=== PATIENT | female | born 1990 | race Caucasian/White ===

== ENCOUNTER 2017-05-17 06:53 | Inpatient (IN) | payer MEDICAID ==
[2017-05-17] MEDS ORDERED: Sodium Chloride 0.9% 10 ML Syringe FLUSH PRN (08:07)
[2017-05-17] MEDS ORDERED: Ondansetron 4 MG Tab.DIS PO PRN (08:07)
[2017-05-17] MEDS ORDERED: fentaNYL 100 MCG/2 ML SDV IVPUSH PRN (08:07)
[2017-05-17] MEDS ORDERED: Misoprostol 50 MCG (1/2 of 100 MCG) Tab VAG ONE ×2 (08:15→12:09)
--- NOTE | 2017-05-17 08:20 | PCM.LDHP ---
L&D History of Present Illness - General Date of Service: 05/17/17 (induction) Admit Problem/Dx: Patient Status Order with Admit Dx/Problem 05/17/17 08:07 Patient Status [ADT] Routine Admission Diagnosis/Problem Admission Diagnosis/Problem and not yet delivered Source of Information: Patient History Limitations: Reports: No Limitations - History of Present Illness Introduction:: This 26 year old who is 41 1/7 weeks gestation presents for induction of labor. Has a complicated UTI as well. This is a chronic problem for her and every time she is seen she has UTI. culture pending, Has flank pain. Also has irregular contractions and didn't sleep well last night. Labs: gbs neg, HIV neg, rubella immune, UA WBC 30-40 RBC 5-10, CBC pending. CMP ordered. Has had limited care with just a few visits, states she was unable to come in for visit due to transportation Timing/Duration: Reports: minutes: (2-5) Location, : Reports: Abdomen, Lower back Quality: Reports: Pressure Severity: Moderate Improves with: Reports: None Worsens with: Reports: None - Related Data Allergies/Adverse Reactions: Allergies Allergy/AdvReac Type Severity Reaction Status Date / Time No Known Allergies Allergy Verified 06/29/15 12:25 Home Medications: Home Meds NK [No Known Home Meds] 06/29/15 [History] Past Medical History - Past Health History Medical/Surgical History: Denies Medical/Surgical History Genitourinary History: Reports: Other (See Below) Other Genitourinary History: stent placed a couple years ago 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: : 5 Para: 1 LMP (Approximate): (DION 05/09/17) Neurological History: Reports: Migraines Other Neuro History: hx of migraines Psychiatric History: Reports: Other (See Below) Other Psychiatric History: hx of depression but not so much anymore - Infectious Disease History Infectious Disease History: Reports: Chicken Pox - Past Surgical History Female Surgical History: Reports: None Neurological Surgical History: Reports: None Social & Family History - Family History Family Medical History: Noncontributory - Tobacco Use Smoking Status *Q: Current Every Day Smoker Years of Tobacco use: 10 Packs/Tins Daily: 0.2 Used Tobacco, but Quit: No Second Hand Smoke Exposure: Yes - Caffeine Use Caffeine Use: Reports: None Other Caffeine Use: limiting - Alcohol Use Days Per Week of Alcohol Use: 0 - Recreational Drug Use Recreational Drug Use: No Drug Use in Last 12 Months: No Recreational Drug Type: Reports: Marijuana/Hashish, Methamphetamine Recreational Drug Use Frequency: Monthly Recreational Drug Last Use: 7 mths H&P Review of Systems - Review of Systems: Review Of Systems: See Below General: Reports: No Symptoms HEENT: Reports: No Symptoms Pulmonary: Reports: No Symptoms Cardiovascular: Reports: No Symptoms Gastrointestinal: Reports: No Symptoms Genitourinary: Reports: Hematuria, Flank Pain Musculoskeletal: Reports: No Symptoms Skin: Reports: No Symptoms Psychiatric: Reports: No Symptoms Neurological: Reports: No Symptoms Hematologic/Lymphatic: Reports: No Symptoms Immunologic: Reports: No Symptoms L&D Exam - Exam Exam: See Below - Vital Signs Vital Signs: Last Vital Signs Temp 98.3 F 05/17/17 07:46 Pulse 94 05/17/17 07:46 Resp 18 05/17/17 07:46 BP 131/85 05/17/17 07:46 Pulse Ox 97 05/17/17 07:46 Weight: 170 lb - OB Specific Contraction Frequency (min): 2-5.5 Contraction Intensity: Mild Movement: Active Heart Tones: Present Heart Rate (FHR) Variability: Moderate (6-25 bmp) Presentation: Vertex Estimated Weight: 6-7 pounds - Bowman Score Bowman Score Cervix Position: Midposition Bowman Score Consistency: Soft Bowman Score Effacement: 51-70% Bowman Score Dilation: 1-2 cm Bowman Score Infant's Station: -1 ,0 Bowman Score Total: 8 - Exam General: Alert, Oriented HEENT: PERRLA, Conjunctiva Clear, Hearing Intact, Mucosa Moist & [place], Posterior Pharynx Clear Neck: Supple Lungs: Clear to Auscultation, Normal Respiratory Effort Cardiovascular: Regular Rate, Regular Rhythm GI/Abdominal Exam: Normal Bowel Sounds, Pelvis Stable Rectal Exam: Normal Exam Genitourinary: Cervical dilitation, Enlarged uterus Back Exam: Normal Inspection, CVA Tenderness (R) Extremities: Normal Inspection, Normal Capillary Refill Skin: Warm, Dry, Intact Psychiatric: Alert, Normal Affect, Normal Mood - Patient Data Lab Results Last 24 hrs: Laboratory Results - last 24 hr 05/17/17 05/17/17 05/17/17 Range/Units 07:07 07:07 07:14 Sodium 137 L (140-148) mmol/L Potassium 3.8 (3.6-5.2) mmol/L Chloride 104 (100-108) mmol/L Carbon Dioxide 20 L (21-32) mmol/L Anion Gap 16.8 H (5.0-14.0) mmol/L BUN 8 (7-18) mg/dL Creatinine 0.9 (0.6-1.0) mg/dL Est Cr Clr Drug Dosing 88.68 mL/min Estimated GFR (MDRD) > 60 (>60) Glucose 79 (74-106) mg/dL Calcium 9.0 (8.5-10.1) mg/dL Total Bilirubin 0.3 (0.2-1.0) mg/dL AST 16 (15-37) U/L ALT 12 (12-78) U/L Alkaline Phosphatase 272 H (46-116) U/L Total Protein 7.1 (6.4-8.2) g/dL Albumin 2.4 L (3.4-5.0) g/dL Globulin 4.7 H (2.3-3.5) g/dL Albumin/Globulin Ratio 0.5 L (1.2-2.2) Urine Color Yellow Urine Appearance Turbid Urine pH 6.0 (4.5-8.0) Ur Specific [place] 1.015 (1.008-1.030) Urine Protein Trace (NEGATIVE) mg/dL Urine Glucose (UA) Normal (NEGATIVE) mg/dL Urine Ketones Negative (NEGATIVE) mg/dL Urine Occult Blood Moderate (NEGATIVE) Urine Nitrite Negative (NEGATIVE) Urine Bilirubin Negative (NEGATIVE) Urine Urobilinogen Normal (NORMAL) mg/dL Ur Leukocyte Esterase Large (NEGATIVE) Urine RBC 5-10 H (0-5) Urine WBC 75-100 H (0-5) Ur Epithelial Cells Rare Amorphous Sediment Rare Urine Bacteria Moderate Urine Mucus Not seen Urine Opiates Screen Negative (NEGATIVE) Ur Oxycodone Screen Negative (NEGATIVE) Urine Methadone Screen Negative (NEGATIVE) Ur Propoxyphene Screen Negative (NEGATIVE) Ur Barbiturates Screen Negative (NEGATIVE) Ur Tricyclics Screen Negative (NEGATIVE) Ur Phencyclidine Scrn Negative (NEGATIVE) Ur Amphetamine Screen Negative (NEGATIVE) U Methamphetamines Scrn Negative (NEGATIVE) Urine MDMA Screen Negative (NEGATIVE) U Benzodiazepines Scrn Negative (NEGATIVE) U Cocaine Metab Screen Negative (NEGATIVE) U Marijuana (THC) Screen Negative (NEGATIVE) Result Diagrams: 05/17/17 07:14 - Problem List (1) Elective induction of labor planned SNOMED Code(s): 153567813 ICD Code: [id number] - Status: Acute Current Visit: No (2) SNOMED Code(s): 69930694 ICD Code: Z34.90 - ENCNTR FOR SUPRVSN OF NORMAL , UNSP, UNSP TRIMESTER Status: Acute Current Visit: No Qualifiers: Weeks of gestation: 41 weeks Qualified Code(s): Z3A.41 - 41 weeks gestation of (3) Non-obstructive reflux-associated chronic pyelonephritis SNOMED Code(s): 395522849 ICD Code: N11.0 - NONOBSTRUCTIVE REFLUX-ASSOCIATED CHRONIC PYELONEPHRITIS Status: Chronic Priority: Medium Current Visit: No Problem List Initiated/Reviewed/Updated: Yes Orders Last 24hrs: Active Orders 24 hr Category Date Time Status Patient Status [ADT] Routine ADT 05/17/17 08:07 Ordered Antiembolic Devices [RC] .Routine Care 05/17/17 08:12 Ordered Communication Order [RC] ASDIRECTED Care 05/17/17 08:07 Ordered Heart Tones [RC] PER UNIT ROUTINE Care 05/17/17 08:07 Ordered Notify Provider Vital Signs [RC] PRN Care 05/17/17 08:07 Ordered Notify Provider [RC] PRN Care 05/17/17 08:07 Ordered Up ad Emily [RC] ASDIRECTED Care 05/17/17 08:07 Ordered VTE/DVT Education [RC] Click to Edit Care 05/17/17 08:12 Ordered Vital Signs [RC] PER UNIT ROUTINE Care 05/17/17 08:07 Ordered Regular Diet [DIET] Diet 05/17/17 Lunch Ordered CBC WITH AUTO DIFF [HEME] Routine Lab 05/17/17 07:56 Ordered CULTURE URINE [RM] Routine Lab 05/17/17 07:50 Ordered Misoprostol [Cytotec] Med 05/17/17 08:15 Once 50 mcg VAG ONETIME ONE Normal Saline @ 125 MLS/HR (1000ml) Med 05/17/17 08:15 Ordered Sodium Chloride 0.9% [Normal Saline] 1,000 ml IV ASDIRECTED Ondansetron [Zofran ODT] Med 05/17/17 08:07 Ordered 4 mg PO Q4H PRN Oxytocin/Normal Saline [Pitocin in NS 20 Units/1,000 ML Med 05/17/17 08:15 Ordered ] 1,000 ml IV TITRATE Sodium Chloride 0.9% [Saline Flush] Med 05/17/17 08:07 Ordered 10 ml FLUSH ASDIRECTED PRN cefTRIAXone [Rocephin] 1 gm Med 05/17/17 08:15 Ordered Sodium Chloride 0.9% [Normal Saline] 50 ml IV Q24H fentaNYL [Sublimaze] Med 05/17/17 08:07 Ordered 100 mcg IVPUSH Q1H PRN DVT/VTE Prophylaxis Reflex [OM.PC] Routine Oth 05/17/17 08:07 Ordered Saline Lock Insert [OM.PC] Routine Oth 05/17/17 08:07 Ordered Resuscitation Status Routine Resus Stat 05/17/17 08:07 Ordered Medication Orders Fentanyl (Sublimaze) 100 mcg IVPUSH Q1H PRN PRN Reason: Pain (moderate 4-6) Sodium Chloride (Normal Saline) 1,000 mls @ 125 mls/hr IV ASDIRECTED HUGO Ceftriaxone Sodium 1 gm/ (Sodium Chloride) 50 mls @ 100 mls/hr IV Q24H HUGO Misoprostol (Cytotec) 50 mcg VAG ONETIME ONE Stop: 05/17/17 08:16 Last Admin: 05/17/17 08:03 Dose: 50 mcg Ondansetron HCl (Zofran Odt) 4 mg PO Q4H PRN PRN Reason: Nausea/Vomiting Sodium Chloride (Saline Flush) 10 ml FLUSH ASDIRECTED PRN PRN Reason: Keep Vein Open Assessment/Plan Comment:: 26 yr old 41 1/7 weeks with complicated UTI and planned induction for dates. UA positive for rcb's and wbc's culture pending HGB 11.9, PLT 332 ABO o pos HIV neg Rubella immune GBS neg Plan treat complicated uti with IV Rocephin for the next several await culture Misoprostol vaginally this morning and may repeat at noon. monitor for active labor Plan for vaginal delivery later today.
[2017-05-17] MEDS: Sodium Chloride 0.9% 1,000 ML IV SCH ×2 (09:57→21:18)
[2017-05-17] MEDS: cefTRIAXone 1 GM in Sodium Chloride 0.9% 50 ML IV SCH (09:58)
[2017-05-17] MEDS ORDERED: Sodium Chloride 0.9% 1,000 ML IV ONE ×2 (12:14→13:15)
--- NOTE | 2017-05-17 12:18 | PCM.PNLD ---
Labor Progress Note - VS & Meds Vital Signs: Last Vital Signs Temp 98.5 F 05/17/17 11:37 Pulse 72 05/17/17 11:37 Resp 18 05/17/17 11:37 BP 113/62 05/17/17 11:37 Pulse Ox 96 05/17/17 11:37 Active Medications: Current Medications Fentanyl (Sublimaze) 100 mcg IVPUSH Q1H PRN PRN Reason: Pain (moderate 4-6) Sodium Chloride (Normal Saline) 1,000 mls @ 125 mls/hr IV ASDIRECTED HUGO Last Admin: 05/17/17 09:57 Dose: 125 mls/hr Ceftriaxone Sodium 1 gm/ (Sodium Chloride) 50 mls @ 100 mls/hr IV Q24H HUGO Last Admin: 05/17/17 09:58 Dose: 100 mls/hr Oxytocin/Sodium Chloride (Pitocin In Ns 20 Units/1,000 Ml) 20 units in 1,000 mls @ 6 mls/hr IV TITRATE HUGO; 2 MUNITS/MIN PRN Reason: Protocol Misoprostol (Cytotec) 50 mcg VAG ONETIME ONE Stop: 05/17/17 12:10 Ondansetron HCl (Zofran Odt) 4 mg PO Q4H PRN PRN Reason: Nausea/Vomiting Last Admin: 05/17/17 09:57 Dose: 4 mg Sodium Chloride (Saline Flush) 10 ml FLUSH ASDIRECTED PRN PRN Reason: Keep Vein Open Discontinued Medications Misoprostol (Cytotec) 50 mcg VAG ONETIME ONE Stop: 05/17/17 08:16 Last Admin: 05/17/17 08:03 Dose: 50 mcg - Uterine Contractions Uterine Monitoring Mode: External [place] Contraction Frequency (min): 2-5 Contraction Duration (sec): 50-80 Contraction Intensity: Moderate Uterine Resting Tone: Soft - Monitoring Monitor Mode: External Ultrasound Heart Rate (FHR) Variability: Moderate (6-25 bmp) Accelerations: Present, 15x15 Decelerations: None Strip Review: Category I - Vaginal Exam Dilation (cm): 2-3 Station: Ballot[place] Cervical Position: Midposition Sterile Vaginal Exam Performed By: Peg Spence Vaginal Exam Comment: some thinner than this morning. Contractions stronger - Labor Progress (Free Text) Labor Progress: 2-3/75/-1 Contractions stronger nauseated Plan up and about after one hour of monitoring after Misoprostol insertion another 50 mcg placed at 1215. Planning for vaginal delivery later Epidural after dilated to 4 cm
[2017-05-17] MEDS ORDERED: ePHEDrine 50 MG/ML SDV ONE (13:36)
[2017-05-17] MEDS ORDERED: fentaNYL 100 MCG/2 ML SDV ONE (14:58)
[2017-05-17] MEDS ORDERED: Ropivacaine 0.2% 2 MG/ML 100 ML Infusion Bottle ONE (16:00)
--- NOTE | 2017-05-17 17:06 | PCM.PNLD ---
Labor Progress Note - VS & Meds Vital Signs: Last Vital Signs Temp 98.5 F 05/17/17 11:37 Pulse 61 05/17/17 16:40 Resp 16 05/17/17 16:40 BP 120/76 05/17/17 16:40 Pulse Ox 94 L 05/17/17 16:40 Active Medications: Current Medications Fentanyl (Sublimaze) 100 mcg IVPUSH Q1H PRN PRN Reason: Pain (moderate 4-6) Sodium Chloride (Normal Saline) 1,000 mls @ 125 mls/hr IV ASDIRECTED HUGO Last Admin: 05/17/17 09:57 Dose: 125 mls/hr Ceftriaxone Sodium 1 gm/ (Sodium Chloride) 50 mls @ 100 mls/hr IV Q24H HUGO Last Admin: 05/17/17 09:58 Dose: 100 mls/hr Oxytocin/Sodium Chloride (Pitocin In Ns 20 Units/1,000 Ml) 20 units in 1,000 mls @ 6 mls/hr IV TITRATE HUGO; 2 MUNITS/MIN PRN Reason: Protocol Sodium Chloride (Normal Saline) 1,000 mls @ 125 mls/hr IV BOLUS ONE Stop: 05/17/17 21:14 Last Admin: 05/17/17 13:39 Dose: 125 mls/hr Ondansetron HCl (Zofran Odt) 4 mg PO Q4H PRN PRN Reason: Nausea/Vomiting Last Admin: 05/17/17 09:57 Dose: 4 mg Sodium Chloride (Saline Flush) 10 ml FLUSH ASDIRECTED PRN PRN Reason: Keep Vein Open Discontinued Medications Ephedrine Sulfate (Ephedrine Sulfate) Confirm Administered Dose 50 mg .ROUTE .STK-MED ONE Stop: 05/17/17 13:37 Last Admin: 05/17/17 16:47 Dose: Not Given Fentanyl (Sublimaze) Confirm Administered Dose 100 mcg .ROUTE .STK-MED ONE Stop: 05/17/17 14:59 Sodium Chloride (Normal Saline) 1,000 mls @ 999 mls/hr IV .BOLUS ONE Stop: 05/17/17 13:14 Last Admin: 05/17/17 12:31 Dose: 999 mls/hr Misoprostol (Cytotec) 50 mcg VAG ONETIME ONE Stop: 05/17/17 08:16 Last Admin: 05/17/17 08:03 Dose: 50 mcg Misoprostol (Cytotec) 50 mcg VAG ONETIME ONE Stop: 05/17/17 12:10 Last Admin: 05/17/17 12:33 Dose: 50 mcg - Uterine Contractions Uterine Monitoring Mode: External [place] Contraction Frequency (min): 1-2.5 Contraction Duration (sec): 50-100 Contraction Intensity: Strong Uterine Resting Tone: Soft - Monitoring Monitor Mode: External Ultrasound Heart Rate (FHR) Variability: Moderate (6-25 bmp) Accelerations: Present, 15x15 Decelerations: None Strip Review: Category I - Vaginal Exam Dilation (cm): 7.5-8 Effacement (Percent): 95 Station: 1 Cervical Position: Anterior Sterile Vaginal Exam Performed By: Simran Sanford Vaginal Exam Comment: nice change since AROM at 1555. - Labor Progress (Free Text) Labor Progress: Epidural at 1514, good control of legs, pain controlled as well. Anticipate a vaginal delivery
[2017-05-17] MEDS ORDERED: diphenhydrAMINE 50 MG/ML SDV IVPUSH ONE (18:08)
[2017-05-17] MEDS ORDERED: diphenhydrAMINE 50 MG/ML SDV ONE (18:08)
[2017-05-17] MEDS ORDERED: methylPREDNISolone Sod Succ 250 MG in Dextrose 5% in Water 100 ML IV ONE ×2 (18:08)
[2017-05-17] MEDS ORDERED: methylPREDNISolone Sodium Succinate 125 MG/2 ML SDV ONE (18:09)
[2017-05-17] MEDS ORDERED: Acetaminophen 325 MG Tab PO PRN (18:24)
[2017-05-17] MEDS ORDERED: Docusate Sodium 100 MG Cap PO PRN (18:24)
--- NOTE | 2017-05-17 18:58 | PCM.DEL ---
L & D Note - General Info Date of Service: 05/17/17 (delivery) Mother's Due Date: 05/09/17 - Delivery Note Labor: Spontaneous Cervical Ripening Method: Misoprostil Delivery Outcome: Livebirth Infant Delivery Method: Spontaneous Vaginal Delivery-Single Delivery Mode: Vacuum Extraction Presentation: Vertex Nuchal Cord: Present Anesthesia Type: Epidural Amniotic Fluid Description: Clear Episiotomy Type: None Laceration: 1st Degree, Perineal Suture type: Vicryl Suture size: 3-0 Placenta: Intact, Spontaneous Cord: 3 Vessels Estimated Blood Loss: 400 Resuscitation Needed: No [place]: Bulb Syringe, Stimulated, Warmed Provider: Peg Spence Score 1 min: 8 Score 5 min: 9 Score 10 min: 9 Post Delivery Events: Other (see below) (anaphylactic reaction requiring medication and respiratory support with O2) Second Stage Interventions: Reports: Second Nurse Reviewed Heart Tones, Pushing, Squat Bar Pulling on Sheet Delivery Comments (Free Text/Narrative):: This 26 year old who is 41 1/7 weeks gestation delivered via a viable female at 1758 in LENNY position. Mother was pushing effectively but baby heart tones were in the 90 for 5 minutes. the Kiwi was used to help with delivery of the head. the head was brought to the perinuem and mother pushed the out with one long push. There was a tight nuchal cord which I tried to reduce but it would not reduce, the cord was clamped and cut. The baby was when delivered and cried as we placed her on mother's abdomen. Bulb suctioned, dried and stimulated. Apgars of 8,9,9. Three vessel cord. The placenta was expressed spontaneously intact. There was a first degree perineal tear which was repaired with 3-0 vicryl. As I was finishing the repair work we noticed hives on her right forearm. She quickly went into an anaphylactic reaction with angioedema of her face and rattely respirations. Solu medrol 250 mg IV given and 50 mg Benadryl IV and a non-rebreather for O2. PET GROOMER was asked to present tot he unit for possible respiratory support and the staff assist was called. She responded to the medications and O2 within minutes and breathing became easier. Mother now stable EBL 400cc Baby to nursery in stable condition First stage 0784-0017 Second stage [id number] Third stage 5984-6193 Induction Criteria - Bowman Score Bowman Score Dilation: 1-2 cm Bowman Score Effacement: 40-50% Bowman Score 's Station: -1 ,0 Bowman Score Consistency: Soft Bwoman Score Cervix Position: Midposition Bowman Score Total: 7 Bowman Score Presenting Part: Reports: Cephalic - Induction Gestational Age >/= 39 wks: Yes Estimated Pelvis: Reports: Adequate Reassuring Monitoring Strip: Yes Absence of Tachy Systole: Yes Vacuum Extractor Progress Note - Alternative Labor Strategies Considered Alternative Labor Strategies Considered:: Reports: Yes Strategies Considered:: Reports: Contraction Intensity Adequate, Position Changes Used to Facilitate Rotation & Descent, Empty Bladder Indications Considered:: Reports: Yes Indications:: Reports: Suspicion of Immediate or Potential Compromise Time Out:: Reports: Yes - Patient Prepared Patient Prepared:: Reports: Yes Informed Consent:: Reports: Verbal Risks: Reports: Yes Risks Include:: Reports: Laceration, Shoulder Dystocia, Maternal Injury, Other Anesthesia/Analgesia Adequate:: Reports: Yes - Probability of Success High Probability of Success:: Reports: Yes Weight Estimated:: Reports: AGA Patient Diabetic:: Reports: No Pelvis Adequate:: Reports: Yes Asynclitic:: Reports: No - Application Time Maximum Application Time & Number of Pop-Offs Predetermined:: Reports: Yes Type of Vacuum Used:: Reports: Cup: Mushroom type Vacuum Extraction: Successful - Exit Strategy Exit strategy available:: Reports: Yes and resuscitation teams readily available:: Reports: Yes - General Info Date of Service: 05/17/17 Admission Dx/Problem (Free Text): Patient Status Order with Admit Dx/Problem 05/17/17 08:07 Patient Status [ADT] Routine Admission Diagnosis/Problem Admission Diagnosis/Problem and not yet delivered Functional Status: Reports: Pain Controlled - Review of Systems General: Reports: No Symptoms HEENT: Reports: No Symptoms Pulmonary: Reports: No Symptoms Cardiovascular: Reports: No Symptoms Gastrointestinal: Reports: No Symptoms Genitourinary: Reports: No Symptoms Musculoskeletal: Reports: No Symptoms Skin: Reports: No Symptoms Neurological: Reports: No Symptoms Psychiatric: Reports: No Symptoms - Patient Data Vitals - Most Recent: Last Vital Signs Temp 98.5 F 05/17/17 11:37 Pulse 61 10/30/17 16:40 Resp 16 05/17/17 16:40 BP 120/76 05/17/17 16:40 Pulse Ox 94 L 05/17/17 16:40 Weight - Most Recent: 170 lb I&O - Last 24 Hours: Intake & Output 05/17/17 05/17/17 05/17/17 06:59 14:59 22:59 Intake Total 50 Balance 50 Lab Results Last 24 Hours: Laboratory Results - last 24 hr 05/17/17 05/17/17 05/17/17 Range/Units 07:07 07:07 07:14 WBC (4.5-11.0) K/uL RBC (3.30-5.50) M/uL Hgb (12.0-15.0) g/dL Hct (36.0-48.0) % MCV (80-98) fL MCH (27-31) pg MCHC (32-36) % Plt Count (150-400) K/uL Neut % (Auto) (36-66) % Lymph % (Auto) (24-44) % [place] % (Auto) (2-6) % Eos % (Auto) (2-4) % Baso % (Auto) (0-1) % Sodium 137 L (140-148) mmol/L Potassium 3.8 (3.6-5.2) mmol/L Chloride 104 (100-108) mmol/L Carbon Dioxide 20 L (21-32) mmol/L Anion Gap 16.8 H (5.0-14.0) mmol/L BUN 8 (7-18) mg/dL Creatinine 0.9 (0.6-1.0) mg/dL Est Cr Clr Drug Dosing 88.68 mL/min Estimated GFR (MDRD) > 60 (>60) Glucose 79 (74-106) mg/dL Calcium 9.0 (8.5-10.1) mg/dL Total Bilirubin 0.3 (0.2-1.0) mg/dL AST 16 (15-37) U/L ALT 12 (12-78) U/L Alkaline Phosphatase 272 H (46-116) U/L Total Protein 7.1 (6.4-8.2) g/dL Albumin 2.4 L (3.4-5.0) g/dL Globulin 4.7 H (2.3-3.5) g/dL Albumin/Globulin Ratio 0.5 L (1.2-2.2) Urine Color Yellow Urine Appearance Turbid Urine pH 6.0 (4.5-8.0) Ur Specific [place] 1.015 (1.008-1.030) Urine Protein Trace (NEGATIVE) mg/dL Urine Glucose (UA) Normal (NEGATIVE) mg/dL Urine Ketones Negative (NEGATIVE) mg/dL Urine Occult Blood Moderate (NEGATIVE) Urine Nitrite Negative (NEGATIVE) Urine Bilirubin Negative (NEGATIVE) Urine Urobilinogen Normal (NORMAL) mg/dL Ur Leukocyte Esterase Large (NEGATIVE) Urine RBC 5-10 H (0-5) Urine WBC 75-100 H (0-5) Ur Epithelial Cells Rare Amorphous Sediment Rare Urine Bacteria Moderate Urine Mucus Not seen Urine Opiates Screen Negative (NEGATIVE) Ur Oxycodone Screen Negative (NEGATIVE) Urine Methadone Screen Negative (NEGATIVE) Ur Propoxyphene Screen Negative (NEGATIVE) Ur Barbiturates Screen Negative (NEGATIVE) Ur Tricyclics Screen Negative (NEGATIVE) Ur Phencyclidine Scrn Negative (NEGATIVE) Ur Amphetamine Screen Negative (NEGATIVE) U Methamphetamines Scrn Negative (NEGATIVE) Urine MDMA Screen Negative (NEGATIVE) U Benzodiazepines Scrn Negative (NEGATIVE) U Cocaine Metab Screen Negative (NEGATIVE) U Marijuana (THC) Screen Negative (NEGATIVE) 05/17/17 Range/Units 07:56 WBC 12.2 H (4.5-11.0) K/uL RBC 3.90 (3.30-5.50) M/uL Hgb 11.9 L (12.0-15.0) g/dL Hct 35.4 L (36.0-48.0) % MCV 91 (80-98) fL MCH 31 (27-31) pg MCHC 34 (32-36) % Plt Count 332 (150-400) K/uL Neut % (Auto) 60 (36-66) % Lymph % (Auto) 30 (24-44) % [place] % (Auto) 8 H (2-6) % Eos % (Auto) 2 (2-4) % Baso % (Auto) 0 (0-1) % Sodium (140-148) mmol/L Potassium (3.6-5.2) mmol/L Chloride (100-108) mmol/L Carbon Dioxide (21-32) mmol/L Anion Gap (5.0-14.0) mmol/L BUN (7-18) mg/dL Creatinine (0.6-1.0) mg/dL Est Cr Clr Drug Dosing mL/min Estimated GFR (MDRD) (>60) Glucose (74-106) mg/dL Calcium (8.5-10.1) mg/dL Total Bilirubin (0.2-1.0) mg/dL AST (15-37) U/L ALT (12-78) U/L Alkaline Phosphatase (46-116) U/L Total Protein (6.4-8.2) g/dL Albumin (3.4-5.0) g/dL Globulin (2.3-3.5) g/dL Albumin/Globulin Ratio (1.2-2.2) Urine Color Urine Appearance Urine pH (4.5-8.0) Ur Specific [place] (1.008-1.030) Urine Protein (NEGATIVE) mg/dL Urine Glucose (UA) (NEGATIVE) mg/dL Urine Ketones (NEGATIVE) mg/dL Urine Occult Blood (NEGATIVE) Urine Nitrite (NEGATIVE) Urine Bilirubin (NEGATIVE) Urine Urobilinogen (NORMAL) mg/dL Ur Leukocyte Esterase (NEGATIVE) Urine RBC (0-5) Urine WBC (0-5) Ur Epithelial Cells Amorphous Sediment Urine Bacteria Urine Mucus Urine Opiates Screen (NEGATIVE) Ur Oxycodone Screen (NEGATIVE) Urine Methadone Screen (NEGATIVE) Ur Propoxyphene Screen (NEGATIVE) Ur Barbiturates Screen (NEGATIVE) Ur Tricyclics Screen (NEGATIVE) Ur Phencyclidine Scrn (NEGATIVE) Ur Amphetamine Screen (NEGATIVE) U Methamphetamines Scrn (NEGATIVE) Urine MDMA Screen (NEGATIVE) U Benzodiazepines Scrn (NEGATIVE) U Cocaine Metab Screen (NEGATIVE) U Marijuana (THC) Screen (NEGATIVE) Med Orders - Current: Current Medications Acetaminophen (Tylenol) 650 mg PO Q4H PRN PRN Reason: mild pain or fever Acetaminophen/Codeine Phosphate (Tylenol With Codeine No.3 300mg/30mg) 1 tab PO Q4H PRN PRN Reason: Pain (moderate 4-6) Cetirizine HCl (Zyrtec) 10 mg PO DAILY HUGO Docusate Sodium (Colace) 100 mg PO BID PRN PRN Reason: Constipation Fentanyl (Sublimaze) 100 mcg IVPUSH Q1H PRN PRN Reason: Pain (moderate 4-6) Sodium Chloride (Normal Saline) 1,000 mls @ 125 mls/hr IV ASDIRECTED HUGO Last Admin: 05/17/17 09:57 Dose: 125 mls/hr Ceftriaxone Sodium 1 gm/ (Sodium Chloride) 50 mls @ 100 mls/hr IV Q24H HUGO Last Admin: 05/17/17 09:58 Dose: 100 mls/hr Oxytocin/Sodium Chloride (Pitocin In Ns 20 Units/1,000 Ml) 20 units in 1,000 mls @ 6 mls/hr IV TITRATE HUGO; 2 MUNITS/MIN PRN Reason: Protocol Sodium Chloride (Normal Saline) 1,000 mls @ 125 mls/hr IV BOLUS ONE Stop: 05/17/17 21:14 Last Admin: 05/17/17 13:39 Dose: 125 mls/hr Ibuprofen (Motrin) 600 mg PO Q6H PRN PRN Reason: mild pain or fever Ondansetron HCl (Zofran Odt) 4 mg PO Q4H PRN PRN Reason: Nausea/Vomiting Last Admin: 05/17/17 09:57 Dose: 4 mg Prednisone (Prednisone) 40 mg PO .Daily Taper HUGO Ranitidine HCl (Zantac) 300 mg PO BID HUGO Sodium Chloride (Saline Flush) 10 ml FLUSH ASDIRECTED PRN PRN Reason: Keep Vein Open Discontinued Medications Diphenhydramine HCl (Benadryl) Confirm Administered Dose 50 mg .ROUTE .STK-MED ONE Stop: 05/17/17 18:09 Ephedrine Sulfate (Ephedrine Sulfate) Confirm Administered Dose 50 mg .ROUTE .STK-MED ONE Stop: 05/17/17 13:37 Last Admin: 05/17/17 16:47 Dose: Not Given Fentanyl (Sublimaze) Confirm Administered Dose 100 mcg .ROUTE .STK-MED ONE Stop: 05/17/17 14:59 Sodium Chloride (Normal Saline) 1,000 mls @ 999 mls/hr IV .BOLUS ONE Stop: 05/17/17 13:14 Last Admin: 05/17/17 12:31 Dose: 999 mls/hr Methylprednisolone Sodium Succinate (Solu-Medrol) Confirm Administered Dose 250 mg .ROUTE .STK-MED ONE Stop: 05/17/17 18:10 Misoprostol (Cytotec) 50 mcg VAG ONETIME ONE Stop: 05/17/17 08:16 Last Admin: 05/17/17 08:03 Dose: 50 mcg Misoprostol (Cytotec) 50 mcg VAG ONETIME ONE Stop: 05/17/17 12:10 Last Admin: 05/17/17 12:33 Dose: 50 mcg - Exam General: Alert, Oriented HEENT: Pupils Equal, Pupils Reactive, EOMI, Mucous Membr. Moist/[place] Neck: Supple Lungs: Clear to Auscultation, Normal Respiratory Effort Cardiovascular: Regular Rate, Regular Rhythm GI/Abdominal Exam: Normal Bowel Sounds, Soft, Non-Tender, No Organomegaly, No Distention, No Abnormal Bruit, No Mass, Pelvis Stable (Female) Exam: Normal External Exam, Normal Speculum Exam, Normal Bimanual Exam, Enlarged Uterus, Vaginal Bleeding Back Exam: Normal Inspection, Full Range of Motion Extremities: Normal Inspection, Normal Range of Motion, Non-Tender, No Pedal Edema, Normal Capillary Refill Skin: Warm, Dry, Intact Wound/Incisions: Healing Well Neurological: No New Focal Deficit Psy/Mental Status: Alert, Normal Affect, Normal Mood - Problem List & Annotations (1) Elective induction of labor planned SNOMED Code(s): 828911661 Code(s): NFC2631 - Status: Acute Current Visit: No (2) SNOMED Code(s): 80897654 Code(s): Z34.90 - ENCNTR FOR SUPRVSN OF NORMAL , UNSP, UNSP TRIMESTER Status: Acute Current Visit: No Qualifiers: Weeks of gestation: 41 weeks Qualified Code(s): Z3A.41 - 41 weeks gestation of (3) Non-obstructive reflux-associated chronic pyelonephritis SNOMED Code(s): 625046096 Code(s): N11.0 - NONOBSTRUCTIVE REFLUX-ASSOCIATED CHRONIC PYELONEPHRITIS Status: Chronic Priority: Medium Current Visit: No (4) Vaginal delivery SNOMED Code(s): 006329223 Code(s): O80 - ENCOUNTER FOR FULL-TERM UNCOMPLICATED DELIVERY Status: Acute Current Visit: Yes (5) Anaphylactic reaction SNOMED Code(s): 88024773 Code(s): T78.2XXA - ANAPHYLACTIC SHOCK, UNSPECIFIED, INITIAL ENCOUNTER Status: Acute Current Visit: No - Problem List Review Problem List Initiated/Reviewed/Updated: Yes - My Orders Last 24 Hours: My Active Orders 05/17/17 07:00 CULTURE URINE [RM] Routine 05/17/17 08:07 Communication Order [RC] ASDIRECTED Notify Provider Vital Signs [RC] PRN Notify Provider [RC] PRN Up ad Emily [RC] ASDIRECTED Vital Signs [RC] Q4H Ondansetron [Zofran ODT] 4 mg PO Q4H PRN Sodium Chloride 0.9% [Saline Flush] 10 ml FLUSH ASDIRECTED PRN fentaNYL [Sublimaze] 100 mcg IVPUSH Q1H PRN DVT/VTE Prophylaxis Reflex [OM.PC] Routine Saline Lock Insert [OM.PC] Routine Resuscitation Status Routine 05/17/17 08:12 Antiembolic Devices [RC] .Routine VTE/DVT Education [RC] Click to Edit 05/17/17 08:15 Oxytocin/Normal Saline [Pitocin in NS 20 Units/1,000 ML] 20 units in 1,000 ml IV TITRATE Sodium Chloride 0.9% [Normal Saline] 1,000 ml IV ASDIRECTED 05/17/17 09:30 cefTRIAXone [Rocephin] 1 gm Sodium Chloride 0.9% [Normal Saline] 50 ml IV Q24H 05/17/17 13:15 Sodium Chloride 0.9% [Normal Saline] 1,000 ml IV BOLUS 05/17/17 16:14 Urinary Catheter Assessment [RC] ASDIRECTED 05/17/17 16:15 Insert [place] Catheter [Insert Urinary Catheter] [OM.PC] Q24H 05/17/17 18:24 Acetaminophen [Tylenol] 650 mg PO Q4H PRN Acetaminophen/Codeine [Tylenol with Codeine No.3 300MG/30MG] 1 tab PO Q4H PRN Docusate Sodium [Colace] 100 mg PO BID PRN Ibuprofen [Motrin] 600 mg PO Q6H PRN Assess Lochia [WOMSER] Per Unit Routine Assess Uterine Involution [WOMSER] Per Unit Routine 05/17/17 18:27 Patient Status [ADT] Routine Vital Signs [RC] PFP 05/17/17 18:28 Ice Therapy [OM.PC] Per Unit Routine Perineal Care [OM.PC] Per Unit Routine Sitz Bath [OM.PC] Per Unit Routine 05/17/17 18:45 predniSONE 40 mg PO .Daily Taper 05/17/17 21:00 Ranitidine [Zantac] 300 mg PO BID 05/17/17 Lunch Regular Diet [DIET] 05/18/17 05:11 CBC WITH AUTO DIFF [HEME] AM 05/18/17 09:00 Cetirizine [ZyrTEC] 10 mg PO DAILY - Assessment Assessment:: 05/17/17 26 year old 41 1/7 with vacuum assist. Perineal first degree tear with repair Anaphylactic reaction possible to the pitocin - Plan Plan:: 26 yr old 41 1/7 weeks with complicated UTI and planned induction for dates. UA positive for rcb's and wbc's culture pending HGB 11.9, PLT 332 ABO o pos HIV neg Rubella immune GBS neg Plan treat complicated uti with IV Rocephin for the next several await culture Misoprostol vaginally this morning and may repeat at noon. monitor for active labor Plan for vaginal delivery later today. 05/17/17 Routine cares for post delivery Monitor for any further problems with hives or angioedema, medications ordered UTI, continue to treat culture pending Support
[2017-05-17] MEDS: predniSONE 10 MG Tab PO SCH (20:02)
[2017-05-17] MEDS: Ibuprofen 600 MG Tab PO PRN (20:07)
[2017-05-17] MEDS: Acetaminophen/Codeine 300-30 MG Tab PO PRN (22:36)
[2017-05-18] MEDS: Acetaminophen/Codeine 300-30 MG Tab PO PRN ×3 (03:48→19:50)
--- NOTE | 2017-05-18 07:49 | ANES ---
DATE OF SERVICE: 05/17/2017 INDICATIONS: This 26-year-old was in labor and dilated to 3 cm. Peg Spence has asked an epidural be placed for labor. The patient has been in since admission early this morning for an induction. At this point, her water was not broken. TECHNIQUE: She was placed in a sitting position, after discussing the risks and benefits of the procedure, which she is understanding of and has had one before. She signed an informed consent. Her back was prepped with Betadine x3. She was given a 2 mL skin wheal of 1% Xylocaine at approximately L3-L4 and another 2 to 3 mL of 1% Xylocaine into the deeper tissue. A 17-gauge Tuohy needle was placed in the epidural space at that level using a loss of resistance technique. I was unable to aspirate blood, fluid, or air from the epidural needle and proceeded to give her a bolus of 6 mL that included 5 mL of 1.5% Xylocaine with epinephrine and 2 mm of 100 mcg preservative-free fentanyl. An epidural catheter was then threaded into the epidural space approximately 2 to 3 cm and the needle was removed over the catheter. The catheter was brought up over the left shoulder and taped securely in place. She was then placed on a ropivacaine infusion at 12 mL/h. of 0.2% ropivacaine, titrate p.r.n. pain. The pump settings and the drug were discussed with the RN in attendance. Anesthesia Service will be contacted if any further assistance. NAME OF PROCEDURE: Placement of labor epidural. Nick Colon CRNA /[id number]
[2017-05-18] MEDS: Ibuprofen 600 MG Tab PO PRN ×2 (08:00→14:48)
--- NOTE | 2017-05-18 08:53 | PCM.PNPP ---
- General Info Date of Service: 05/18/17 (PPD 1) Admission Dx/Problem (Free Text): Patient Status Order with Admit Dx/Problem 05/17/17 08:07 Patient Status [ADT] Routine Admission Diagnosis/Problem Admission Diagnosis/Problem and not yet delivered Functional Status: Reports: Pain Controlled - Review of Systems General: Reports: No Symptoms HEENT: Reports: No Symptoms Pulmonary: Reports: No Symptoms Cardiovascular: Reports: No Symptoms Gastrointestinal: Reports: No Symptoms Genitourinary: Reports: No Symptoms Musculoskeletal: Reports: No Symptoms Skin: Reports: No Symptoms Neurological: Reports: No Symptoms Psychiatric: Reports: No Symptoms - Patient Data Vital Signs - Most Recent: Last Vital Signs Temp 97.7 F 05/18/17 02:04 Pulse 63 05/18/17 02:04 Resp 16 05/18/17 02:04 BP 101/47 L 05/18/17 02:04 Pulse Ox 96 05/18/17 02:04 Weight - Most Recent: 170 lb I&O - Last 24 Hours: Intake & Output 05/17/17 05/18/17 05/18/17 22:59 06:59 14:59 Intake Total 2100 600 Balance 2100 600 Lab Results - Last 24 Hours: Laboratory Results - last 24 hr 05/18/17 Range/Units 04:30 WBC 21.1 H (4.5-11.0) K/uL RBC 3.40 (3.30-5.50) M/uL Hgb 10.4 L (12.0-15.0) g/dL Hct 31.8 L (36.0-48.0) % MCV 94 (80-98) fL MCH 31 (27-31) pg MCHC 33 (32-36) % Plt Count 305 (150-400) K/uL Neut % (Auto) 93 H (36-66) % Lymph % (Auto) 6 L (24-44) % [place] % (Auto) 2 (2-6) % Eos % (Auto) 0 L (2-4) % Baso % (Auto) 0 (0-1) % Micro Results - Last 24 Hours: Microbiology 05/17/17 07:00 Urine Culture - Preliminary Urine, Clean Catch MIXED POSITIVE BELEN DAY 1 Med Orders - Current: Current Medications Acetaminophen (Tylenol) 650 mg PO Q4H PRN PRN Reason: mild pain or fever Acetaminophen/Codeine Phosphate (Tylenol With Codeine No.3 300mg/30mg) 1 tab PO Q4H PRN PRN Reason: Pain (moderate 4-6) Last Admin: 05/18/17 03:48 Dose: 1 tab Cetirizine HCl (Zyrtec) 10 mg PO DAILY [facility] Docusate Sodium (Colace) 100 mg PO BID PRN PRN Reason: Constipation Fentanyl (Sublimaze) 100 mcg IVPUSH Q1H PRN PRN Reason: Pain (moderate 4-6) Sodium Chloride (Normal Saline) 1,000 mls @ 125 mls/hr IV ASDIRECTED [facility] Last Admin: 05/17/17 21:18 Dose: 125 mls/hr Ceftriaxone Sodium 1 gm/ (Sodium Chloride) 50 mls @ 100 mls/hr IV Q24H [facility] Last Admin: 05/17/17 09:58 Dose: 100 mls/hr Ibuprofen (Motrin) 600 mg PO Q6H PRN PRN Reason: mild pain or fever Last Admin: 05/18/17 08:00 Dose: 600 mg Ondansetron HCl (Zofran Odt) 4 mg PO Q4H PRN PRN Reason: Nausea/Vomiting Last Admin: 05/17/17 09:57 Dose: 4 mg Prednisone (Prednisone) 40 mg PO DAILY@1900 [facility] Stop: 05/18/17 19:01 Last Admin: 05/17/17 20:02 Dose: 40 mg Prednisone (Prednisone) 20 mg PO DAILY@1900 [facility] Stop: 05/20/17 19:01 Ranitidine HCl (Zantac) 300 mg PO BID [facility] Last Admin: 05/17/17 22:03 Dose: 300 mg Sodium Chloride (Saline Flush) 10 ml FLUSH ASDIRECTED PRN PRN Reason: Keep Vein Open Discontinued Medications Diphenhydramine HCl (Benadryl) Confirm Administered Dose 50 mg .ROUTE .STK-MED ONE Stop: 05/17/17 18:09 Last Admin: 05/17/17 18:08 Dose: 50 mg Ephedrine Sulfate (Ephedrine Sulfate) Confirm Administered Dose 50 mg .ROUTE .STK-MED ONE Stop: 05/17/17 13:37 Last Admin: 05/17/17 16:47 Dose: Not Given Fentanyl (Sublimaze) Confirm Administered Dose 100 mcg .ROUTE .STK-MED ONE Stop: 05/17/17 14:59 Oxytocin/Sodium Chloride (Pitocin In Ns 20 Units/1,000 Ml) 20 units in 1,000 mls @ 6 mls/hr IV TITRATE [facility]; 2 MUNITS/MIN PRN Reason: Protocol Sodium Chloride (Normal Saline) 1,000 mls @ 999 mls/hr IV .BOLUS ONE Stop: 05/17/17 13:14 Last Admin: 05/17/17 12:31 Dose: 999 mls/hr Sodium Chloride (Normal Saline) 1,000 mls @ 125 mls/hr IV BOLUS ONE Stop: 05/17/17 21:14 Last Admin: 05/17/17 13:39 Dose: 125 mls/hr Methylprednisolone Sodium Succinate (Solu-Medrol) Confirm Administered Dose 250 mg .ROUTE .STK-MED ONE Stop: 05/17/17 18:10 Last Admin: 05/17/17 18:09 Dose: 250 mg Misoprostol (Cytotec) 50 mcg VAG ONETIME ONE Stop: 05/17/17 08:16 Last Admin: 05/17/17 08:03 Dose: 50 mcg Misoprostol (Cytotec) 50 mcg VAG ONETIME ONE Stop: 05/17/17 12:10 Last Admin: 05/17/17 12:33 Dose: 50 mcg - Interaction Infant Disposition, : in Room with Family Infant Interaction: Holding Feeding: Breastfed ; Nursed Well Support Person: Significant Other - Recovery Exam Fundal Tone: Firm Fundal Level: 1 Fingerbreadths Below Umbilicus Fundal Placement: Midline Lochia Amount: Small Lochia Color: Rubra/Red Perineum Description: Intact, Minimal Bruising/Swelling Episiotomy/Laceration: Approximated Urinary Elimination: Voided - Exam General: Alert, Oriented HEENT: Pupils Equal Neck: Supple Lungs: Clear to Auscultation, Normal Respiratory Effort Cardiovascular: Regular Rate, Regular Rhythm GI/Abdominal Exam: Normal Bowel Sounds, Soft, Non-Tender, No Organomegaly, No Distention, No Abnormal Bruit, No Mass, Pelvis Stable Extremities: Normal Inspection, Normal Range of Motion, Non-Tender, No Pedal Edema, Normal Capillary Refill Skin: Warm, Dry, Intact Wound/Incisions: Healing Well Neurological: No New Focal Deficit Psy/Mental Status: Alert, Normal Affect, Normal Mood - Problem List & Annotations (1) Elective induction of labor planned SNOMED Code(s): 399141438 Code(s): MDO3100 - Status: Acute Current Visit: No (2) SNOMED Code(s): 54364012 Code(s): Z34.90 - ENCNTR FOR SUPRVSN OF NORMAL , UNSP, UNSP TRIMESTER Status: Acute Current Visit: No Qualifiers: Weeks of gestation: 41 weeks Qualified Code(s): Z3A.41 - 41 weeks gestation of (3) Non-obstructive reflux-associated chronic pyelonephritis SNOMED Code(s): 974660580 Code(s): N11.0 - NONOBSTRUCTIVE REFLUX-ASSOCIATED CHRONIC PYELONEPHRITIS Status: Chronic Priority: Medium Current Visit: No (4) Vaginal delivery SNOMED Code(s): 845610292 Code(s): O80 - ENCOUNTER FOR FULL-TERM UNCOMPLICATED DELIVERY Status: Acute Current Visit: Yes (5) Anaphylactic reaction SNOMED Code(s): 99125374 Code(s): T78.2XXA - ANAPHYLACTIC SHOCK, UNSPECIFIED, INITIAL ENCOUNTER Status: Acute Current Visit: No Qualifiers: Encounter type: subsequent encounter Qualified Code(s): T78.2XXD - Anaphylactic shock, unspecified, subsequent encounter - Problem List Review Problem List Initiated/Reviewed/Updated: Yes - My Orders Last 24 Hours: My Active Orders 05/17/17 08:07 Notify Provider Vital Signs [RC] PRN Notify Provider [RC] PRN Up ad Emily [RC] ASDIRECTED Vital Signs [RC] Q4H Ondansetron [Zofran ODT] 4 mg PO Q4H PRN Sodium Chloride 0.9% [Saline Flush] 10 ml FLUSH ASDIRECTED PRN fentaNYL [Sublimaze] 100 mcg IVPUSH Q1H PRN DVT/VTE Prophylaxis Reflex [OM.PC] Routine Saline Lock Insert [OM.PC] Routine Resuscitation Status Routine 05/17/17 08:12 Antiembolic Devices [RC] .Routine VTE/DVT Education [RC] Click to Edit 05/17/17 08:15 Sodium Chloride 0.9% [Normal Saline] 1,000 ml IV ASDIRECTED 05/17/17 09:30 cefTRIAXone [Rocephin] 1 gm Sodium Chloride 0.9% [Normal Saline] 50 ml IV Q24H 05/17/17 16:15 Insert [place] Catheter [Insert Urinary Catheter] [OM.PC] Q24H 05/17/17 18:24 Acetaminophen [Tylenol] 650 mg PO Q4H PRN Acetaminophen/Codeine [Tylenol with Codeine No.3 300MG/30MG] 1 tab PO Q4H PRN Docusate Sodium [Colace] 100 mg PO BID PRN Ibuprofen [Motrin] 600 mg PO Q6H PRN Assess Lochia [WOMSER] Per Unit Routine Assess Uterine Involution [WOMSER] Per Unit Routine 05/17/17 18:27 Patient Status [ADT] Routine 05/17/17 18:28 Ice Therapy [OM.PC] Per Unit Routine Perineal Care [OM.PC] Per Unit Routine Sitz Bath [OM.PC] Per Unit Routine 05/17/17 19:00 predniSONE 40 mg PO DAILY@1900 05/17/17 21:00 Ranitidine [Zantac] 300 mg PO BID 05/17/17 Lunch Regular Diet [DIET] 05/18/17 09:00 Cetirizine [ZyrTEC] 10 mg PO DAILY 05/19/17 19:00 predniSONE 20 mg PO DAILY@1900 - Assessment Assessment:: 05/17/17 26 year old 41 1/7 with vacuum assist. Perineal first degree tear with repair Anaphylactic reaction possible to the pitocin 05/18/17 Doing well this morning Slept ok, nursing baby without problem No wheezing or hives. Repair intact and not painful HGB 10.4 - Plan Plan:: 26 yr old 41 1/7 weeks with complicated UTI and planned induction for dates. UA positive for rcb's and wbc's culture pending HGB 11.9, PLT 332 ABO o pos HIV neg Rubella immune GBS neg Plan treat complicated uti with IV Rocephin for the next several await culture Misoprostol vaginally this morning and may repeat at noon. monitor for active labor Plan for vaginal delivery later today. 05/17/17 Routine cares for post delivery Monitor for any further problems with hives or angioedema, medications ordered UTI, continue to treat culture pending Support 05/18/17 Continue IV antibiotic monitor respiratory status Support Home tomorrow.
[2017-05-18] MEDS: Cetirizine 10 MG Tab PO SCH (08:59)
[2017-05-18] MEDS: cefTRIAXone 1 GM in Sodium Chloride 0.9% 50 ML IV SCH (08:59)
[2017-05-18] MEDS ORDERED: Lanolin 100% Cream 40 GM Tube TOP PRN (09:23)
[2017-05-18] MEDS: predniSONE 10 MG Tab PO SCH (19:46)
[2017-05-19] MEDS: Acetaminophen/Codeine 300-30 MG Tab PO PRN (00:11)
[2017-05-19] MEDS: Ibuprofen 600 MG Tab PO PRN ×2 (01:39→08:59)
--- NOTE | 2017-05-19 06:54 | PCM.PNPP ---
- General Info Date of Service: 05/19/17 Admission Dx/Problem (Free Text): Patient Status Order with Admit Dx/Problem 05/17/17 08:07 Patient Status [ADT] Routine Admission Diagnosis/Problem Admission Diagnosis/Problem and not yet delivered Functional Status: Reports: Pain Controlled - Review of Systems General: Reports: No Symptoms HEENT: Reports: No Symptoms Pulmonary: Reports: No Symptoms Cardiovascular: Reports: No Symptoms Gastrointestinal: Reports: No Symptoms Genitourinary: Reports: No Symptoms Musculoskeletal: Reports: No Symptoms Skin: Reports: No Symptoms Neurological: Reports: No Symptoms Psychiatric: Reports: No Symptoms - Patient Data Vital Signs - Most Recent: Last Vital Signs Temp 98 F 05/19/17 03:00 Pulse 73 05/19/17 03:00 Resp 16 05/19/17 03:00 BP 120/65 05/19/17 03:00 Pulse Ox 95 05/19/17 03:00 Weight - Most Recent: 170 lb I&O - Last 24 Hours: Intake & Output 05/18/17 05/18/17 05/19/17 14:59 22:59 06:59 Intake Total 1000 Balance 1000 Micro Results - Last 24 Hours: Microbiology 05/17/17 07:00 Urine Culture - Final Urine, Clean Catch MIXED POSITIVE BELEN DAY 2 Med Orders - Current: Current Medications Acetaminophen (Tylenol) 650 mg PO Q4H PRN PRN Reason: mild pain or fever Acetaminophen/Codeine Phosphate (Tylenol With Codeine No.3 300mg/30mg) 1 tab PO Q4H PRN PRN Reason: Pain (moderate 4-6) Last Admin: 05/19/17 00:11 Dose: 1 tab Cetirizine HCl (Zyrtec) 10 mg PO DAILY [facility] Last Admin: 05/18/17 08:59 Dose: 10 mg Docusate Sodium (Colace) 100 mg PO BID PRN PRN Reason: Constipation Emollient Ointment (Lansinoh Hpa) 0 gm TOP ASDIRECTED PRN PRN Reason: Pain Last Admin: 05/18/17 09:34 Dose: 1 applic Fentanyl (Sublimaze) 100 mcg IVPUSH Q1H PRN PRN Reason: Pain (moderate 4-6) Sodium Chloride (Normal Saline) 1,000 mls @ 125 mls/hr IV ASDIRECTED [facility] Last Admin: 05/17/17 21:18 Dose: 125 mls/hr Ceftriaxone Sodium 1 gm/ (Sodium Chloride) 50 mls @ 100 mls/hr IV Q24H [facility] Last Admin: 05/18/17 08:59 Dose: 100 mls/hr Ibuprofen (Motrin) 600 mg PO Q6H PRN PRN Reason: mild pain or fever Last Admin: 05/19/17 01:39 Dose: 600 mg Ondansetron HCl (Zofran Odt) 4 mg PO Q4H PRN PRN Reason: Nausea/Vomiting Last Admin: 05/17/17 09:57 Dose: 4 mg Prednisone (Prednisone) 20 mg PO DAILY@1900 [facility] Stop: 05/20/17 19:01 Ranitidine HCl (Zantac) 300 mg PO BID [facility] Last Admin: 05/18/17 22:07 Dose: 300 mg Sodium Chloride (Saline Flush) 10 ml FLUSH ASDIRECTED PRN PRN Reason: Keep Vein Open Discontinued Medications Diphenhydramine HCl (Benadryl) Confirm Administered Dose 50 mg .ROUTE .STK-MED ONE Stop: 05/17/17 18:09 Last Admin: 05/17/17 18:08 Dose: 50 mg Diphenhydramine HCl (Benadryl) 50 mg IVPUSH ONETIME ONE Stop: 05/17/17 18:09 Last Admin: 05/18/17 12:57 Dose: Not Given Ephedrine Sulfate (Ephedrine Sulfate) Confirm Administered Dose 50 mg .ROUTE .STK-MED ONE Stop: 05/17/17 13:37 Last Admin: 05/17/17 16:47 Dose: Not Given Fentanyl (Sublimaze) Confirm Administered Dose 100 mcg .ROUTE .STK-MED ONE Stop: 05/17/17 14:59 Oxytocin/Sodium Chloride (Pitocin In Ns 20 Units/1,000 Ml) 20 units in 1,000 mls @ 6 mls/hr IV TITRATE [facility]; 2 MUNITS/MIN PRN Reason: Protocol Sodium Chloride (Normal Saline) 1,000 mls @ 999 mls/hr IV .BOLUS ONE Stop: 05/17/17 13:14 Last Admin: 05/17/17 12:31 Dose: 999 mls/hr Sodium Chloride (Normal Saline) 1,000 mls @ 125 mls/hr IV BOLUS ONE Stop: 05/17/17 21:14 Last Admin: 05/17/17 13:39 Dose: 125 mls/hr Methylprednisolone Sodium Succinate 250 mg/ Dextrose/Water 104 mls @ 200 mls/ hr IV ONETIME ONE Stop: 05/17/17 18:39 Last Admin: 05/17/17 18:10 Dose: 200 mls/hr Methylprednisolone Sodium Succinate (Solu-Medrol) Confirm Administered Dose 250 mg .ROUTE .STK-MED ONE Stop: 05/17/17 18:10 Last Admin: 05/17/17 18:09 Dose: 250 mg Misoprostol (Cytotec) 50 mcg VAG ONETIME ONE Stop: 05/17/17 08:16 Last Admin: 05/17/17 08:03 Dose: 50 mcg Misoprostol (Cytotec) 50 mcg VAG ONETIME ONE Stop: 05/17/17 12:10 Last Admin: 05/17/17 12:33 Dose: 50 mcg Prednisone (Prednisone) 40 mg PO DAILY@1900 [facility] Stop: 05/18/17 19:01 Last Admin: 05/18/17 19:46 Dose: 40 mg - Interaction Disposition, : Aubrey in Room with Family Infant Interaction: Holding Infant Feeding: Breastfed ; Nursed Well Support Person: Significant Other - Recovery Exam Fundal Tone: Firm Fundal Level: 2 Fingerbreadths Below Umbilicus Fundal Placement: Midline Lochia Amount: Small Lochia Color: Rubra/Red Perineum Description: Intact, Minimal Bruising/Swelling Episiotomy/Laceration: Approximated Bladder Status: Voiding Urinary Elimination: Voided - Exam General: Alert, Oriented HEENT: Pupils Equal Neck: Supple Lungs: Clear to Auscultation, Normal Respiratory Effort Cardiovascular: Regular Rate, Regular Rhythm GI/Abdominal Exam: Normal Bowel Sounds, Soft, Non-Tender, No Organomegaly, No Distention, No Abnormal Bruit, No Mass, Pelvis Stable Extremities: Normal Inspection, Normal Range of Motion, Non-Tender, No Pedal Edema, Normal Capillary Refill Skin: Warm, Dry, Intact Wound/Incisions: Healing Well Neurological: No New Focal Deficit Psy/Mental Status: Alert, Normal Affect, Normal Mood - Problem List & Annotations (1) Elective induction of labor planned SNOMED Code(s): 982970171 Code(s): BWZ8185 - Status: Acute Current Visit: No (2) SNOMED Code(s): 03666124 Code(s): Z34.90 - ENCNTR FOR SUPRVSN OF NORMAL , UNSP, UNSP TRIMESTER Status: Acute Current Visit: No Qualifiers: Weeks of gestation: 41 weeks Qualified Code(s): Z3A.41 - 41 weeks gestation of (3) Non-obstructive reflux-associated chronic pyelonephritis SNOMED Code(s): 030615913 Code(s): N11.0 - NONOBSTRUCTIVE REFLUX-ASSOCIATED CHRONIC PYELONEPHRITIS Status: Chronic Priority: Medium Current Visit: No (4) Vaginal delivery SNOMED Code(s): 416481894 Code(s): O80 - ENCOUNTER FOR FULL-TERM UNCOMPLICATED DELIVERY Status: Acute Current Visit: Yes (5) Anaphylactic reaction SNOMED Code(s): 59271300 Code(s): T78.2XXA - ANAPHYLACTIC SHOCK, UNSPECIFIED, INITIAL ENCOUNTER Status: Acute Current Visit: No Qualifiers: Encounter type: subsequent encounter Qualified Code(s): T78.2XXD - Anaphylactic shock, unspecified, subsequent encounter - Problem List Review Problem List Initiated/Reviewed/Updated: Yes - My Orders Last 24 Hours: My Active Orders 05/18/17 09:00 Cetirizine [ZyrTEC] 10 mg PO DAILY 05/18/17 09:23 Lanolin [Lansinoh HPA] 0 gm TOP ASDIRECTED PRN 05/19/17 19:00 predniSONE 20 mg PO DAILY@1900 - Assessment Assessment:: 05/17/17 26 year old 41 1/7 with vacuum assist. Perineal first degree tear with repair Anaphylactic reaction possible to the pitocin 05/18/17 Doing well this morning Slept ok, nursing baby without problem No wheezing or hives. Repair intact and not painful HGB 10.4 05/19/17 ready to go home. going well will finish last dose of IV antibiotic this morning for her UTI No perineal pain from repair No further problems with hives - Plan Plan:: 26 yr old 41 1/7 weeks with complicated UTI and planned induction for dates. UA positive for rcb's and wbc's culture pending HGB 11.9, PLT 332 ABO o pos HIV neg Rubella immune GBS neg Plan treat complicated uti with IV Rocephin for the next several await culture Misoprostol vaginally this morning and may repeat at noon. monitor for active labor Plan for vaginal delivery later today. 05/17/17 Routine cares for post delivery Monitor for any further problems with hives or angioedema, medications ordered UTI, continue to treat culture pending Support 05/18/17 Continue IV antibiotic monitor respiratory status Support Home tomorrow. 05/19/17 Home today and see me in 2 weeks for follow up
[2017-05-19] MEDS: Cetirizine 10 MG Tab PO SCH (08:48)
[2017-05-19] MEDS: cefTRIAXone 1 GM in Sodium Chloride 0.9% 50 ML IV SCH (08:48)
[2017-05-19 13:19] VITALS: BP 114/61
[2017-05-19] MEDS ORDERED: predniSONE 20 MG Tab PO SCH (19:00)
== END 2017-05-19 11:15 | disposition home or self-care (01) | DRG 774 ==
LOC: JP.OB 06:53 → OBSVTOIN 17:58 → JP.MS 20:15
PROVIDERS: ADMIT Nurse Practitioner Family; ATTEND Nurse Practitioner Family
PROC: 10D07Z6 Extraction of Products of Conception, Vacuum, Via Natural or Artificial Opening (ICD-10-PCS; principal; 2017-05-17)
PROC: 00HU33Z Insertion of Infusion Device into Spinal Canal, Percutaneous Approach (ICD-10-PCS; 2017-05-17)
PROC: 3E0P7VZ Introduction of Hormone into Female Reproductive, Via Natural or Artificial Opening (ICD-10-PCS; 2017-05-17)
PROC: 10907ZC Drainage of Amniotic Fluid, Therapeutic from Products of Conception, Via Natural or Artificial Opening (ICD-10-PCS; 2017-05-17)
PROC: 0HQ9XZZ Repair Perineum Skin, External Approach (ICD-10-PCS; 2017-05-17)
DX: O69.1XX0 Labor and delivery complicated by cord around neck, with compression, not applicable or unspecified (principal); O75.3 Other infection during labor; O75.1 Shock during or following labor and delivery; T88.6XXA Anaphylactic reaction due to adverse effect of correct drug or medicament properly administered, initial encounter; O76 Abnormality in fetal heart rate and rhythm complicating labor and delivery; O70.0 First degree perineal laceration during delivery; O66.5 Attempted application of vacuum extractor and forceps; Z3A.41 41 weeks gestation of pregnancy; Z37.0 Single live birth; T48.0X5A Adverse effect of oxytocic drugs, initial encounter; Y92.230 Patient room in hospital as the place of occurrence of the external cause; N11.0 Nonobstructive reflux-associated chronic pyelonephritis
CPT/HCPCS: 36415; 59409; 80053; 80305; 81001; 85025; 87086; A9270-GY; J0696; J1200; J2590; J2795; J2930; J3010; J7040; J7050; J7060

== ENCOUNTER 2018-01-14 21:06 | Emergency (ER) | payer MEDICAID ==
[2018-01-14 21:34] VITALS: BP 131/93
[2018-01-14] MEDS ORDERED: HYDROmorphone 1 MG/ML Syringe IM ONE (21:37)
[2018-01-14] MEDS ORDERED: Acetaminophen/oxyCODONE 325-5 MG Tab PO ONE (21:38)
--- NOTE | 2018-01-14 21:41 | EDM.PDOC ---
ED HPI GENERAL MEDICAL PROBLEM - General Chief Complaint: Genitourinary Problem Stated Complaint: BLOOD IN URINE/SURGERY TODAY Time Seen by Provider: 01/14/18 21:30 Source of Information: Reports: Patient History Limitations: Reports: No Limitations - History of Present Illness INITIAL COMMENTS - FREE TEXT/NARRATIVE: Tali is a 27-year-old female who presents to the emergency Department today with right flank pain and hematuria. Patient wasn't Marcio earlier today which she had a nephrostomy tube placed on the right side secondary to a blockage. Patient was sent home with instructions to take ibuprofen for pain. Patient reports he did not tell her that the blood in the urine would be normal. Patient denies any fever. Patient reports that the ibuprofen has been ineffective. 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: Neurological History: Reports: Migraines Other Neuro History: hx of migraines Psychiatric History: Reports: Other (See Below) Other Psychiatric History: hx of depression but not so much anymore - Infectious Disease History Infectious Disease History: Reports: Chicken Pox - Past Surgical History Female Surgical History: Reports: None Neurological Surgical History: Reports: None Social & Family History - Family History Family Medical History: Noncontributory - Caffeine Use Caffeine Use: Reports: None Other Caffeine Use: limiting ED ROS GENERAL - Review of Systems Review Of Systems: ROS reveals no pertinent complaints other than HPI. ED EXAM, RENAL/ - Physical Exam Exam: See Below Exam Limited By: No Limitations General Appearance: Alert, WD/WN, Moderate Distress Respiratory/Chest: No Respiratory Distress, Lungs Clear Cardiovascular: Regular Rate, Rhythm, No Murmur GI/Abdominal: Normal Bowel Sounds, Soft (Female) Exam: Other (patient has right-sided flank pain surrounding nephrostomy tube entry site. Incision site looks clean and dry. Blood-tinged urine present and tube.) Back Exam: CVA Tenderness (R) Neurological: Alert, Oriented Psychiatric: Anxious Skin Exam: Warm, Dry Lymphatic: No Adenopathy Course - Vital Signs Last Recorded V/S: Last Vital Signs Temp 36.9 C 01/14/18 21:42 Pulse 92 01/14/18 21:42 Resp 18 01/14/18 21:42 BP 131/93 H 01/14/18 21:42 Pulse Ox 97 01/14/18 21:42 Tali is a 27 year old female who presents to the ED today with c/o right flank pain and hematuria. Patient in [place] today where a nephrostomy tube was placed secondary to marked hydronephrosis. She was sent home on Ibuprofen which has done nothing for her pain. She arrives here mildly hypertensive, likely secondary to pain. Patient was given 1 mg of IM Dilaudid and a dose of oral Percocet for 10/10 pain. UA obtained to rule out infection. Patient was informed that the blood in her urine is not unsual given her procedure earlier today. She has had no fever and is not hypotensive/tachcycardic, so I am not concerned about sepsis. Urine returns with large leukoctye esterase and 10-20 WBCs. Of course, not surpising, large amounts of blood. UC is pending. Patient is feeling much better here after medication. Pain is down to a 4/10. Will start patient on 3 day course of Cipro, was not sent home on any antibiotics from [facility] today, and percocet for pain if ibuprofen continues to be ineffective. Hydration encouraged. Reasons to return to the ED discussed in detail. Patient and her agreeable to plan of care and patient discharged in stable condition. - Orders/Labs/Meds Orders: Active Orders 24 hr Category Date Time Status CULTURE URINE [RM] Stat Lab 01/14/18 22:30 Received UA W/MICROSCOPIC [URIN] Stat Lab 01/14/18 21:56 Ordered Labs: Laboratory Tests 01/14/18 Range/Units 21:56 Urine Color Red Urine Appearance Cloudy Urine pH 9.0 H (4.5-8.0) Ur Specific [place] 1.015 (1.008-1.030) Urine Protein 500 H (NEGATIVE) mg/dL Urine Glucose (UA) 50 H (NEGATIVE) mg/dL Urine Ketones Negative (NEGATIVE) mg/dL Urine Occult Blood Large (NEGATIVE) Urine Nitrite Negative (NEGATIVE) Urine Bilirubin Negative (NEGATIVE) Urine Urobilinogen Normal (NORMAL) mg/dL Ur Leukocyte Esterase Large (NEGATIVE) Urine RBC Packed H (0-5) Urine WBC 10-20 H (0-5) Ur Epithelial Cells Few Amorphous Sediment Few Urine Bacteria Few Urine Mucus Rare Meds: Medications Discontinued Medications Generic Name Dose Route Start Last Admin Trade Name Alyson PRN Reason Stop Dose Admin Hydromorphone HCl 1 mg 01/14/18 21:37 01/14/18 21:52 Dilaudid IM 01/14/18 21:38 1 mg ONETIME ONE Administration Oxycodone/Acetaminophen 2 tab 01/14/18 21:38 01/14/18 21:53 Percocet 325-5 Mg PO 01/14/18 21:39 2 tab ONETIME ONE Administration Departure - Departure Time of Disposition: 23:00 Disposition: Home, Self-Care 01 Condition: Good Clinical Impression: UTI, Urinary tract infectious disease, Flank pain, acute - Discharge Information Instructions: Urinary Tract Infection, Adult, [id number] Referrals: Peg Spence CNM [Primary Care Provider] - Forms: ED Department Discharge Additional Instructions: Tali, Take Cipro as prescribed. Ibuprofen for pain, percocet for severe pain, this is a narcotic, do not drink alcohol or drive if you take it. Stay really well hydrated. Call your urologist/inhalation therapy teacher on Wednesday to discuss how you are feeling. If you develop any worsening symptoms or complications please return to the ED. I hope you feel better soon, good luck with everything. - My Orders Last 24 Hours: My Active Orders 01/14/18 21:56 UA W/MICROSCOPIC [URIN] Stat 01/14/18 22:30 CULTURE URINE [RM] Stat - Assessment/Plan Last 24 Hours: My Active Orders 01/14/18 21:56 UA W/MICROSCOPIC [URIN] Stat 01/14/18 22:30 CULTURE URINE [RM] Stat
== END 2018-01-14 22:58 | disposition home or self-care (01) ==
LOC: JP.ED 21:06
DX: N39.0 Urinary tract infection, site not specified (principal); Z88.8 Allergy status to other drugs, medicaments and biological substances
CPT/HCPCS: 81001; 87086; 96372; 99284; A9270; J1170

== ENCOUNTER 2018-04-18 23:24 | Emergency (ER) | payer OTHER, MEDICAID ==
[2018-04-19 00:19] VITALS: BP 126/89
--- NOTE | 2018-04-19 00:41 | EDM.PDOC ---
ED HPI GENERAL MEDICAL PROBLEM - General Chief Complaint: Genitourinary Problem Stated Complaint: ILLNESS Time Seen by Provider: 04/19/18 00:36 Source of Information: Reports: Patient, Family, RN Notes Reviewed History Limitations: Reports: No Limitations - History of Present Illness INITIAL COMMENTS - FREE TEXT/NARRATIVE: 27-year-old female presents emergency department today with a broken nephrostomy tube, the stopcock has broken and she needs a replacement no other complaints at this time - Related Data Allergies Allergy/AdvReac Type Severity Reaction Status Date / Time oxytocin Allergy Severe Anaphylactic Verified 04/19/18 00:17 Shock Home Meds: Home Meds Albuterol [Ventolin HFA] 2 inhalation INH ASDIRECTED PRN 01/14/18 [History] Past Medical History Genitourinary History: Reports: Other (See Below) Other Genitourinary History: stent placed a couple years ago [employer]IVER History: Reports: Neurological History: Reports: Migraines Other Neuro History: hx of migraines Psychiatric History: Reports: Other (See Below) Other Psychiatric History: hx of depression but not so much anymore - Infectious Disease History Infectious Disease History: Reports: Chicken Pox - Past Surgical History Female Surgical History: Reports: Other (See Below) Other Female Surgeries/Procedures: nephrostomy tube Neurological Surgical History: Reports: None Social & Family History - Family History Family Medical History: Noncontributory - Tobacco Use Smoking Status *Q: Current Every Day Smoker Years of Tobacco use: 14 Packs/Tins Daily: 1.2 - Caffeine Use Caffeine Use: Reports: None Other Caffeine Use: limiting - Recreational Drug Use Recreational Drug Use: No ED ROS GENERAL - Review of Systems Review Of Systems: See Below Constitutional: Reports: Other (Broken nephrostomy tube) Respiratory: Reports: No Symptoms Cardiovascular: Reports: No Symptoms GI/Abdominal: Reports: No Symptoms ED EXAM, GENERAL - Physical Exam Exam: See Below Free Text/Narrative:: Stopcock was replaced by nursing staff examination of the to wound is clean dry and intact no erythema no tenderness around the wound Exam Limited By: No Limitations General Appearance: Alert, WD/WN, No Apparent Distress Respiratory/Chest: No Respiratory Distress Course - Vital Signs Last Recorded V/S: Last Vital Signs Temp 97.7 F 04/19/18 00:18 Pulse 85 04/19/18 00:18 Resp 16 04/19/18 00:18 BP 126/89 04/19/18 00:18 Pulse Ox 98 04/19/18 00:18 Departure - Departure Time of Disposition: 00:40 Disposition: Home, Self-Care 01 Condition: Good Clinical Impression: Urinary catheter dysfunction Qualifiers: Encounter type: initial encounter Qualified Code(s): T83.018A - Breakdown ( mechanical) of other urinary catheter, initial encounter - Discharge Information Referrals: Peg Spence CNM [Primary Care Provider] - Additional Instructions: please keep your follow-up appointment with your primary care tomorrow, call or return to the emergency department worsening of symptoms - Assessment/Plan Plan: Assessment Acuity = acute Site and laterality = broken nephrostomy tube Etiology = unclear etiology Manifestations = none Location of injury = Home Lab values = none Plan Stopcock was replaced tube appears to be open and functioning she does have follow-up with primary care tomorrow This note was dictated using [employer] voice recognition software please call with any questions on syntax or grammar.
== END 2018-04-19 00:45 | disposition home or self-care (01) ==
LOC: JP.ED 23:24
DX: T83.018A Breakdown (mechanical) of other urinary catheter, initial encounter (principal); F17.210 Nicotine dependence, cigarettes, uncomplicated; Z88.8 Allergy status to other drugs, medicaments and biological substances
CPT/HCPCS: 99283

== ENCOUNTER 2019-07-24 06:04 | Inpatient (IN) | payer OTHER ==
[2019-07-24] MEDS ORDERED: Misoprostol 50 MCG (1/2 of 100 MCG) Tab VAG ONE (07:06)
--- NOTE | 2019-07-24 07:28 | CRLUS ---
INDICATION: well-being prior to induction. COMPARISON: None. TECHNIQUE: Real time leyva scale imaging of the fetus was performed as well as color Doppler and spectral Doppler analysis of the umbilical artery. Without non-stress testing. FINDINGS: Sonographic imaging demonstrates a single living intrauterine gestation. Fetus demonstrates a regular cardiac rate of 129 beats per minute. Fetus has a cephalic orientation. The amniotic fluid volume appears normal and there is a four-quadrant fluid volume index measurement of 12.6 cm. The fetus was active and demonstrated normal breathing movements. There was normal flexion and extension of the trunk and extremities. IMPRESSION: Normal biophysical profile score of 8 out of 8. Dictated by Omaira Bill MD @ Jul 24 2019 7:22AM Signed by Dr. Omaira Bill @ Jul 24 2019 7:26AM
[2019-07-24] MEDS ORDERED: Sodium Chloride 0.9% 10 ML Syringe FLUSH PRN (07:55)
--- NOTE | 2019-07-24 08:24 | PCM.LDHP ---
L&D History of Present Illness - General Date of Service: 07/24/19 (induction) Admit Problem/Dx: Patient Status Order with Admit Dx/Problem 07/24/19 07:55 Patient Status [ADT] Routine Admission Diagnosis/Problem Admission Diagnosis/Problem Source of Information: Patient History Limitations: Reports: No Limitations - History of Present Illness Introduction:: 28 year old 39 2/7 weeks presents for planned induction. She is a smoker and BPP 8/8 this morning reactive NST 04/27. Has been ana over the weekend. GBS neg, ABO Opos, HIv neg, Rubella immune Timing/Duration: Reports: other (no real contractions this morning) - Related Data Allergies/Adverse Reactions: Allergies Allergy/AdvReac Type Severity Reaction Status Date / Time oxytocin Allergy Severe Anaphylactic Verified 07/24/19 07:54 Shock Home Medications: Home Meds Pnv No.95/Ferrous Fum/Folic AC [ Caplet] 1 tab PO DAILY 07/22/19 [ History] Past Medical History - Past Health History Medical/Surgical History: Denies Medical/Surgical History HEENT History: Reports: Impaired Vision Respiratory History: Reports: Bronchitis, Recurrent Genitourinary History: Reports: Renal Calculus, Other (See Below) Other Genitourinary History: stent placed a couple years ago [employer] LE[employer]ER History: Reports: : 6 Para: 2 LMP (Approximate): (07/29/2019) Neurological History: Reports: Migraines Other Neuro History: hx of migraines Psychiatric History: Reports: Other (See Below) Other Psychiatric History: hx of depression but not so much anymore - Infectious Disease History Infectious Disease History: Reports: Chicken Pox - Past Surgical History HEENT Surgical History: Reports: None Respiratory Surgical History: Reports: None Female Surgical History: Reports: Other (See Below) Other Female Surgeries/Procedures: nephrostomy tube Neurological Surgical History: Reports: None Social & Family History - Family History Family Medical History: Noncontributory - Tobacco Use Smoking Status *Q: Current Every Day Smoker Years of Tobacco use: 15 Packs/Tins Daily: 0.5 Used Tobacco, but Quit: No Second Hand Smoke Exposure: Yes - Caffeine Use Caffeine Use: Reports: Coffee, Soda Other Caffeine Use: limiting - Recreational Drug Use Recreational Drug Use: No H&P Review of Systems - Review of Systems: Review Of Systems: Comprehensive ROS is negative, except as noted in HPI. L&D Exam - Exam Exam: See Below - Vital Signs Vital Signs: Last Vital Signs Temp 98.5 F 07/24/19 07:05 Pulse 79 07/24/19 07:05 Resp 18 07/24/19 07:05 BP 118/73 07/24/19 07:05 Pulse Ox 96 07/24/19 07:05 Weight: 218 lb - OB Specific Movement: Active Heart Tones: Present Heart Tones per Min: 145 Heart Rate (FHR) Variability: Moderate (6-25 bmp) Presentation: Vertex Estimated Weight: 7-8 pounds - Bowman Score Bowman Score Cervix Position: Midposition Bowman Score Consistency: Soft Bowman Score Effacement: 51-70% Bowman Score Dilation: 1-2 cm Bowman Score 's Station: -1 ,0 Bowman Score Total: 8 - Exam General: Alert, Oriented HEENT: PERRLA, Mucosa Moist & [place] Neck: Supple Lungs: Normal Respiratory Effort Cardiovascular: Regular Rate, Regular Rhythm GI/Abdominal Exam: Soft Rectal Exam: Normal Exam Genitourinary: Cervical dilitation, Enlarged uterus Back Exam: Normal Inspection Extremities: Normal Range of Motion, No Pedal Edema, Normal Capillary Refill Skin: Warm Neurological: Cranial Nerves Intact, Reflexes Equal Bilateral Psychiatric: Alert, Normal Affect - Patient Data Lab Results Last 24 hrs: Laboratory Results - last 24 hr 07/24/19 07/24/19 07/24/19 Range/Units 06:29 06:29 07:06 WBC 9.9 (4.5-11.0) K/uL RBC 3.70 (3.30-5.50) M/uL Hgb 11.8 L (12.0-15.0) g/dL Hct 35.8 L (36.0-48.0) % MCV 97 (80-98) fL MCH 32 H (27-31) pg MCHC 33 (32-36) % Plt Count 260 (150-400) K/uL Neut % (Auto) 68 H (36-66) % Lymph % (Auto) 23 L (24-44) % Douglas % (Auto) 8 H (2-6) % Eos % (Auto) 1 L (2-4) % Baso % (Auto) 0 (0-1) % Urine Color Yellow (YELLOW) Urine Appearance Clear (CLEAR) Urine pH 6.5 (5.0-8.0) Ur Specific [place] >= 1.030 (1.008-1.030) Urine Protein Negative (NEGATIVE) mg/dL Urine Glucose (UA) Negative (NEGATIVE) mg/dL Urine Ketones Negative (NEGATIVE) mg/dL Urine Occult Blood Negative (NEGATIVE) Urine Nitrite Negative (NEGATIVE) Urine Bilirubin Negative (NEGATIVE) Urine Urobilinogen 0.2 (0.2-1.0) EU/dL Ur Leukocyte Esterase Negative (NEGATIVE) Urine Opiates Screen Negative (NEGATIVE) Ur Oxycodone Screen Negative (NEGATIVE) Urine Methadone Screen Negative (NEGATIVE) Ur Propoxyphene Screen Negative (NEGATIVE) Ur Barbiturates Screen Negative (NEGATIVE) Ur Tricyclics Screen Negative (NEGATIVE) Ur Phencyclidine Scrn Negative (NEGATIVE) Ur Amphetamine Screen Negative (NEGATIVE) U Methamphetamines Scrn Negative (NEGATIVE) Urine MDMA Screen Negative (NEGATIVE) U Benzodiazepines Scrn Negative (NEGATIVE) U Cocaine Metab Screen Negative (NEGATIVE) U Marijuana (THC) Screen Negative (NEGATIVE) Result Diagrams: 07/24/19 07:06 - Problem List (1) Elective induction of labor planned SNOMED Code(s): 644439210 ICD Code: [id number] - Status: Acute Current Visit: Yes (2) SNOMED Code(s): 03027855 ICD Code: Z34.90 - ENCNTR FOR SUPRVSN OF NORMAL , UNSP, UNSP TRIMESTER Status: Acute Current Visit: Yes Qualifiers: Weeks of gestation: 39 weeks Qualified Code(s): Z3A.39 - 39 weeks gestation of (3) Smoker SNOMED Code(s): 67763474 ICD Code: F17.200 - NICOTINE DEPENDENCE, UNSPECIFIED, UNCOMPLICATED Status : Acute Current Visit: Yes Problem List Initiated/Reviewed/Updated: Yes Orders Last 24hrs: Active Orders 24 hr Category Date Time Status Patient Status [ADT] Routine ADT 07/24/19 07:55 Ordered Antiembolic Devices [RC] .Routine Care 07/24/19 07:58 Ordered Heart Tones [RC] INTERMITTENT Care 07/24/19 07:58 Ordered May Shower [RC] ASDIRECTED Care 07/24/19 07:55 Ordered Notify Provider [RC] PRN Care 07/24/19 07:55 Ordered Peripheral IV Care [RC] . DIRECTED Care 07/24/19 07:59 Ordered Up ad Emily [RC] ASDIRECTED Care 07/24/19 07:55 Ordered VTE/DVT Education [RC] Click to Edit Care 07/24/19 07:58 Ordered Vital Signs [RC] PER UNIT ROUTINE Care 07/24/19 07:55 Ordered Clear Liquid Diet [DIET] Diet 07/24/19 Lunch Ordered Oxytocin/Normal Saline [Pitocin in NS 20 Units/1,000 ML Med 07/24/19 08:01 Ordered ] 20 unit in 1,000 ml IV ONETIME Sodium Chloride 0.9% [Saline Flush] Med 07/24/19 07:55 Ordered 10 ml FLUSH ASDIRECTED PRN DVT/VTE Prophylaxis Reflex [OM.PC] Routine Oth 07/24/19 07:55 Ordered Nonstress Test [WOMSER] Routine Oth 07/24/19 07:55 Ordered Peripheral IV Insertion Adult [OM.PC] Routine Oth 07/24/19 07:55 Ordered Resuscitation Status Routine Resus Stat 07/24/19 07:55 Ordered Medication Orders Oxytocin/Sodium Chloride (Pitocin In Ns 20 Units/1,000 Ml) 20 unit in 1,000 mls @ 999 mls/hr IV ONETIME ONE; Protocol Stop: 07/24/19 09:01 Sodium Chloride (Saline Flush) 10 ml FLUSH ASDIRECTED PRN PRN Reason: Keep Vein Open Assessment/Plan Comment:: 07/24/2019 28 year old 39 2/7 weeks, planned induction for smoking and deployment. CE:1-2/50/-1 reactive NST BPP 10/10 baseline FHT 145, cat one strip Plan Miso 50 mcg this morning reassess at noon monitor for active labor pain medication per patient request. Plan for vaginal delivery
[2019-07-24] MEDS ORDERED: Methylergonovine 0.2 MG/1 ML Amp IM ONE ×2 (10:00→14:45)
[2019-07-24] MEDS ORDERED: ePHEDrine 50 MG/ML SDV IVPUSH PRN (12:10)
[2019-07-24] MEDS ORDERED: Lactated Ringers 1,000 ML IV ONE (12:10)
--- NOTE | 2019-07-24 12:10 | PCM.PNLD ---
Labor Progress Note - VS & Meds Vital Signs: Last Vital Signs Temp 98 F 07/24/19 11:00 Pulse 63 07/24/19 10:37 Resp 18 07/24/19 10:37 BP 120/63 07/24/19 10:37 Pulse Ox 96 07/24/19 10:37 Active Medications: Current Medications Lactated Ringer's (Ringers, Lactated) 1,000 mls @ 999 mls/hr IV ASDIRECTED HUGO Sodium Chloride (Saline Flush) 10 ml FLUSH ASDIRECTED PRN PRN Reason: Keep Vein Open Discontinued Medications Methylergonovine Maleate (Methergine) 0.2 mg IM ONETIME ONE Stop: 07/24/19 10:01 Misoprostol (Cytotec) 50 mcg VAG ONETIME ONE Stop: 07/24/19 07:07 Last Admin: 07/24/19 07:43 Dose: 50 mcg - Uterine Contractions Uterine Monitoring Mode: External [place] Contraction Frequency (min): 1.5-2.5 Contraction Duration (sec): 50-70 Contraction Intensity: Moderate Uterine Resting Tone: Soft - Monitoring Monitor Mode: Doppler/Auscultation Heart Rate (FHR) Baseline: 145 Heart Rate (FHR) Variability: Moderate (6-25 bmp) Accelerations: Present, 15x15 Decelerations: None Strip Review: Category I - Vaginal Exam Dilation (cm): 3 Effacement (Percent): 75 Station: -1 Cervical Position: Midposition Sterile Vaginal Exam Performed By: Peg Spence Vaginal Exam Comment: change since this morning - Labor Progress (Free Text) Labor Progress: contractions are every 2 minutes apart. She is uncomfortable. Is will to do tub while getting fluid bolus for epidural. Will try AROM after epidural. Cat one strip Plan for vaginal delivery
[2019-07-24] MEDS ORDERED: Lactated Ringers 1,000 ML IV SCH ×2 (12:15→13:15)
[2019-07-24] MEDS ORDERED: Ondansetron 4 MG/2 ML SDV IVPUSH PRN (13:02)
[2019-07-24] MEDS ORDERED: fentaNYL 100 MCG/2 ML SDV IVPUSH PRN (13:02)
[2019-07-24] MEDS ORDERED: Ropivacaine 100 ML ONE (13:46)
--- NOTE | 2019-07-24 14:10 | ANES ---
DATE OF SERVICE: 07/24/2019 INDICATION: She is an OB patient of Peg Spence. I was requested to assess her for labor epidural. Upon arrival, I reviewed history as well as lab work, found nothing to keep her from labor epidural. Consent was received after discussion risks and benefits. DESCRIPTION OF PROCEDURE: I had her seated at the edge of the bed. Betadine prep x3 to lumbar region. Sterile drape was placed, 1% lidocaine skin wheal as well as deep at the L3- L4 region. A 17-gauge Tuohy was placed to loss of resistance. Negative CSF, negative heme, negative paresthesia. I placed silicone catheter to 15 cm, removed the needle. Test dose through the catheter of 3 mL of 1.5% lidocaine and 1:200,000 epinephrine. I then secured the catheter to her back, placed her in a supine position and dosed her after negative sequelae. I dosed her with 12 mL of 0.2% ropivacaine and then began an infusion of that same 12 mL an hour. She tolerated the procedure quite well. Please refer to nurse's notes for vital signs and neuro status, which were unchanged and within normal limits. Again, she tolerated the procedure quite well. Nilesh Millan CRNA /[id number]
[2019-07-24] MEDS ORDERED: Lanolin 100% Cream 40 GM Tube TOP ONE (17:08)
[2019-07-24] MEDS ORDERED: Methylergonovine 0.2 MG Tab PO PRN (17:08)
[2019-07-24] MEDS ORDERED: Benzocaine 20% Top Spray 56 GM Bottle TOP ONE (17:08)
[2019-07-24] MEDS ORDERED: Witch Hazel Medicated Pads 100/Jar TOP ONE (17:08)
[2019-07-24] MEDS ORDERED: Witch Hazel Medicated Pads 100/Jar TOP PRN (17:08)
[2019-07-24] MEDS ORDERED: Benzocaine 20% Top Spray 56 GM Bottle TOP PRN (17:08)
[2019-07-24] MEDS ORDERED: Ibuprofen 200 MG Tab, 24 Tab Bulk Bottle PO PRN (17:08)
[2019-07-24] MEDS ORDERED: Acetaminophen 325 MG Tab, 50 Tab Bulk Bottle PO PRN (17:08)
[2019-07-24] MEDS ORDERED: Lanolin 100% Cream 40 GM Tube TOP PRN (17:08)
--- NOTE | 2019-07-24 17:19 | PCM.DEL ---
L & D Note - General Info Date of Service: 07/24/19 - Delivery Note Labor: Spontaneous Cervical Ripening Method: Misoprostil Delivery Outcome: Livebirth Infant Delivery Method: Spontaneous Vaginal Delivery-Single Delivery Mode: Spontaneous Presentation: Vertex Nuchal Cord: Present, Reduced Anesthesia Type: Epidural Amniotic Fluid Description: Clear Episiotomy Type: None Laceration: None Placenta: Intact, Spontaneous Cord: 3 Vessels Estimated Blood Loss: 100 Resuscitation Needed: Yes : Suctioned, Stimulated, Warmed Provider: Peg Spence Score 1 min: 7 (color, tone, cry) Score 5 min: 8 (color, tone) Post Delivery Events: Shoulder Dystocia Second Stage Interventions: Reports: Second Nurse Reviewed Heart Tones, Encouragement Given, Pushing Effectively, Pushing, Knee Chest Position, Pushing , McRobert's Position Delivery Comments (Free Text/Narrative):: 07/24/2019 This 28 year old 39 2/7 weeks delivered via in [facility], tight nuchal tight was reduced, shoulder dystocia with Anjum, supra pubic pressure and ultimately fabian Maneuver. 1:20 from delivery of head until delivery of baby. Delivered into my arms. Cord double clamped and cut. To warmer for PPV times 6 PPV until baby cried. Dried and stimulated, deleed. Apgars 7 tone, color cry, 8 tone, color. Three vessel cord. Placenta was expressed spontaneously intact vis expectant management. No laceration were found of perineum, vagina, rectum or cervix. EBL 100cc Mother and baby to post in stable/good condition Weight 8-6 first stage 9295-3232 Second stage 3360-3959 Third stage 4666-0510 Induction Criteria - Bowman Score Bowman Score Dilation: 1-2 cm Obwman Score Effacement: 60-70% Bowman Score Infant's Station: -1 ,0 Bowman Score Consistency: Soft Bowman Score Cervix Position: Midposition Bowman Score Total: 8 Bowman Score Presenting Part: Reports: Cephalic - Induction Gestational Age >/= 39 wks: Yes Estimated Pelvis: Reports: Adequate Reassuring Monitoring Strip: Yes Absence of Tachy Systole: Yes - General Info Date of Service: 07/24/19 Admission Dx/Problem (Free Text): Patient Status Order with Admit Dx/Problem 07/24/19 07:55 Patient Status [ADT] Routine Admission Diagnosis/Problem Admission Diagnosis/Problem Functional Status: Reports: Pain Controlled - Review of Systems General: Reports: No Symptoms HEENT: Reports: No Symptoms Pulmonary: Reports: No Symptoms Cardiovascular: Reports: No Symptoms Gastrointestinal: Reports: No Symptoms Genitourinary: Reports: No Symptoms Musculoskeletal: Reports: No Symptoms Skin: Reports: No Symptoms Neurological: Reports: No Symptoms Psychiatric: Reports: No Symptoms - Patient Data Vitals - Most Recent: Last Vital Signs Temp 99.1 F 07/24/19 15:00 Pulse 74 07/24/19 15:00 Resp 16 07/24/19 15:00 BP 120/72 07/24/19 15:00 Pulse Ox 98 07/24/19 15:00 Weight - Most Recent: 218 lb I&O - Last 24 Hours: Intake & Output 07/24/19 07/24/19 07/24/19 06:59 14:59 22:59 Intake Total 1360 Balance 1360 Lab Results Last 24 Hours: Laboratory Results - last 24 hr 07/24/19 07/24/19 07/24/19 Range/Units 06:29 06:29 07:06 WBC 9.9 (4.5-11.0) K/uL RBC 3.70 (3.30-5.50) M/uL Hgb 11.8 L (12.0-15.0) g/dL Hct 35.8 L (36.0-48.0) % MCV 97 (80-98) fL MCH 32 H (27-31) pg MCHC 33 (32-36) % Plt Count 260 (150-400) K/uL Neut % (Auto) 68 H (36-66) % Lymph % (Auto) 23 L (24-44) % [place] % (Auto) 8 H (2-6) % Eos % (Auto) 1 L (2-4) % Baso % (Auto) 0 (0-1) % Urine Color Yellow (YELLOW) Urine Appearance Clear (CLEAR) Urine pH 6.5 (5.0-8.0) Ur Specific [place] >= 1.030 (1.008-1.030) Urine Protein Negative (NEGATIVE) mg/dL Urine Glucose (UA) Negative (NEGATIVE) mg/dL Urine Ketones Negative (NEGATIVE) mg/dL Urine Occult Blood Negative (NEGATIVE) Urine Nitrite Negative (NEGATIVE) Urine Bilirubin Negative (NEGATIVE) Urine Urobilinogen 0.2 (0.2-1.0) EU/dL Ur Leukocyte Esterase Negative (NEGATIVE) Urine Opiates Screen Negative (NEGATIVE) Ur Oxycodone Screen Negative (NEGATIVE) Urine Methadone Screen Negative (NEGATIVE) Ur Propoxyphene Screen Negative (NEGATIVE) Ur Barbiturates Screen Negative (NEGATIVE) Ur Tricyclics Screen Negative (NEGATIVE) Ur Phencyclidine Scrn Negative (NEGATIVE) Ur Amphetamine Screen Negative (NEGATIVE) U Methamphetamines Scrn Negative (NEGATIVE) Urine MDMA Screen Negative (NEGATIVE) U Benzodiazepines Scrn Negative (NEGATIVE) U Cocaine Metab Screen Negative (NEGATIVE) U Marijuana (THC) Screen Negative (NEGATIVE) Med Orders - Current: Current Medications Acetaminophen (Tylenol Bulk Bottle) 0 mg PO Q4H PRN PRN Reason: Pain Benzocaine (Ycxx-S-Dumzvub 20% [place]) 0 gm TOP ONETIME ONE Stop: 07/24/19 17:09 Benzocaine (Sudg-T-Fphkwqi 20% [place]) 1 gm TOP Q4H PRN PRN Reason: Other Emollient Ointment (Lansinoh Hpa) 1 gm TOP ONETIME ONE Stop: 07/24/19 17:09 Emollient Ointment (Lansinoh Hpa) 40 gm TOP ASDIRECTED PRN PRN Reason: Other Ephedrine Sulfate (Ephedrine Sulfate) 10 mg IVPUSH ASDIRECTED PRN PRN Reason: Hypotension Fentanyl (Sublimaze) 100 mcg IVPUSH Q1H PRN PRN Reason: Pain Lactated Ringer's (Ringers, Lactated) 1,000 mls @ 999 mls/hr IV ASDIRECTED HUGO Lactated Ringer's (Ringers, Lactated) 1,000 mls @ 150 mls/hr IV ASDIRECTED HUGO Last Admin: 07/24/19 13:20 Dose: 150 mls/hr Ibuprofen (Motrin Bulk Bottle) 600 mg PO Q6H PRN PRN Reason: Pain Methylergonovine Maleate (Methergine) 0.2 mg PO ONETIME PRN PRN Reason: excessive vaginal bleeding Ondansetron HCl (Zofran) 4 mg IVPUSH Q4H PRN PRN Reason: Nausea/Vomiting Last Admin: 07/24/19 15:47 Dose: 4 mg Sodium Chloride (Saline Flush) 10 ml FLUSH ASDIRECTED PRN PRN Reason: Keep Vein Open Meek Tellez (Tucks) 1 pad TOP ONETIME ONE Stop: 07/24/19 17:09 Meek Tellez (Popcks) 1 pad TOP ASDIRECTED PRN PRN Reason: Other Discontinued Medications Lactated Ringer's (Ringers, Lactated) 1,000 mls @ 999 mls/hr IV .BOLUS ONE Stop: 07/24/19 13:10 Last Admin: 07/24/19 12:15 Dose: 999 mls/hr Ropivacaine (Naropin 0.2%) Confirm Administered Dose 100 mls @ as directed .ROUTE .STK-MED ONE Stop: 07/24/19 13:47 Methylergonovine Maleate (Methergine) 0.2 mg IM ONETIME ONE Stop: 07/24/19 14:46 Misoprostol (Cytotec) 50 mcg VAG ONETIME ONE Stop: 07/24/19 07:07 Last Admin: 07/24/19 07:43 Dose: 50 mcg - Exam General: Alert, Oriented HEENT: Pupils Equal Neck: Supple Lungs: Normal Respiratory Effort Cardiovascular: Regular Rate, Regular Rhythm GI/Abdominal Exam: Soft (Female) Exam: Normal External Exam, Cervical Dilatation, Enlarged Uterus, Vaginal Bleeding Back Exam: Full Range of Motion Extremities: Non-Tender, No Pedal Edema, Normal Capillary Refill Skin: Warm, Dry, Intact Neurological: No New Focal Deficit Psy/Mental Status: Alert, Normal Affect, Normal Mood - Problem List & Annotations (1) Elective induction of labor planned SNOMED Code(s): 518312531 Code(s): ZQI5985 - Status: Acute Current Visit: Yes (2) SNOMED Code(s): 59508695 Code(s): Z34.90 - ENCNTR FOR SUPRVSN OF NORMAL , UNSP, UNSP TRIMESTER Status: Acute Current Visit: Yes Qualifiers: Weeks of gestation: 39 weeks Qualified Code(s): Z3A.39 - 39 weeks gestation of (3) Smoker SNOMED Code(s): 29645333 Code(s): F17.200 - NICOTINE DEPENDENCE, UNSPECIFIED, UNCOMPLICATED Status: Acute Current Visit: Yes (4) Shoulder dystocia during labor and delivery SNOMED Code(s): 22566522 Code(s): O66.0 - OBSTRUCTED LABOR DUE TO SHOULDER DYSTOCIA Status: Acute Current Visit: Yes (5) Vaginal delivery SNOMED Code(s): 587003572 Code(s): O80 - ENCOUNTER FOR FULL-TERM UNCOMPLICATED DELIVERY Status: Acute Current Visit: Yes - Problem List Review Problem List Initiated/Reviewed/Updated: Yes - My Orders Last 24 Hours: My Active Orders 07/24/19 07:55 May Shower [RC] ASDIRECTED Notify Provider [RC] PRN Up ad Emily [RC] ASDIRECTED Vital Signs [RC] PER UNIT ROUTINE Sodium Chloride 0.9% [Saline Flush] 10 ml FLUSH ASDIRECTED PRN DVT/VTE Prophylaxis Reflex [OM.PC] Routine Nonstress Test [WOMSER] Routine Peripheral IV Insertion Adult [OM.PC] Routine Resuscitation Status Routine 07/24/19 07:58 Antiembolic Devices [RC] .Routine Heart Tones [RC] INTERMITTENT VTE/DVT Education [RC] Click to Edit 07/24/19 07:59 Peripheral IV Care [RC] . DIRECTED 07/24/19 12:10 Communication Order [RC] ASDIRECTED Local Anesthetic Infusion Pump [RC] ASDIRECTED PCEA Epidural [RC] ASDIRECTED PCEA Epidural [RC] ASDIRECTED Urinary Catheter Assessment [RC] ASDIRECTED ePHEDrine [ePHEDrine sulfate] 10 mg IVPUSH ASDIRECTED PRN Epidural Catheter Management [OM.PC] Urgent 07/24/19 12:15 Insert Urinary Catheter [OM.PC] ASDIRECTED Lactated Ringers [Ringers, Lactated] 1,000 ml IV ASDIRECTED 07/24/19 13:02 Ondansetron [Zofran] 4 mg IVPUSH Q4H PRN fentaNYL [Sublimaze] 100 mcg IVPUSH Q1H PRN 07/24/19 13:15 Lactated Ringers [Ringers, Lactated] 1,000 ml IV ASDIRECTED 07/24/19 17:08 Acetaminophen [Tylenol Bulk Bottle] See Dose Instructions PO Q4H PRN Benzocaine [Ehjw-S-Ucrsxwe 20% [place]] 1 gm TOP Q4H PRN Benzocaine [Cujf-J-Yxgmaxm 20% [place]] See Dose Instructions TOP ONETIME ONE Ibuprofen [Motrin Bulk Bottle] 600 mg PO Q6H PRN Lanolin [Lansinoh HPA] 1 gm TOP ONETIME ONE Lanolin [Lansinoh HPA] 40 gm TOP ASDIRECTED PRN Methylergonovine [Methergine] 0.2 mg PO ONETIME PRN Witch Rosalinda [Tucks] 1 pad TOP ASDIRECTED PRN Witch Rosalinda [Tucks] 1 pad TOP ONETIME ONE Assess Lochia [WOMSER] Per Unit Routine Assess Uterine Involution [WOMSER] Per Unit Routine 07/24/19 17:09 Patient Status [ADT] Routine Vital Signs [RC] PFP Perineal Care [OM.PC] Per Unit Routine Peripheral IV Discontinue [OM.PC] Routine 07/24/19 Dinner Regular Diet [DIET] 07/25/19 05:11 CBC WITH AUTO DIFF [HEME] AM - Assessment Assessment:: 07/24/2019 28 year old with shoulder dystocia smoker - Plan Plan:: 07/24/2019 28 year old 39 2/7 weeks, planned induction for smoking and deployment. CE:1-/-1 reactive NST BPP 10/10 baseline FHT 145, cat one strip Plan Miso 50 mcg this morning reassess at noon monitor for active labor pain medication per patient request. Plan for vaginal delivery 07/24/2019 Routine cares support 24-48 hour stay. CBC in AM
[2019-07-25] MEDS: traMADol 50 MG Tab PO PRN ×3 (01:16→17:20)
--- NOTE | 2019-07-25 08:21 | PCM.PNPP ---
- General Info Date of Service: 07/25/19 Functional Status: Reports: Pain Controlled - Review of Systems General: Reports: No Symptoms HEENT: Reports: No Symptoms Pulmonary: Reports: No Symptoms Cardiovascular: Reports: No Symptoms Gastrointestinal: Reports: No Symptoms Genitourinary: Reports: No Symptoms Musculoskeletal: Reports: No Symptoms Skin: Reports: No Symptoms Neurological: Reports: No Symptoms Psychiatric: Reports: No Symptoms - General Info Date of Service: 07/25/19 - Patient Data Vital Signs - Most Recent: Last Vital Signs Temp 36.3 C 07/25/19 03:55 Pulse 58 L 07/25/19 03:55 Resp 16 07/25/19 03:55 BP 121/68 07/25/19 03:55 Pulse Ox 97 07/25/19 03:55 Weight - Most Recent: 98.883 kg I&O - Last 24 Hours: Intake & Output 07/24/19 07/25/19 07/25/19 22:59 06:59 14:59 Intake Total 240 Output Total 650 Balance -410 Lab Results - Last 24 Hours: Laboratory Results - last 24 hr 07/25/19 Range/Units 05:20 WBC 16.0 H (4.5-11.0) K/uL RBC 3.48 (3.30-5.50) M/uL Hgb 11.3 L (12.0-15.0) g/dL Hct 33.6 L (36.0-48.0) % MCV 97 (80-98) fL MCH 33 H (27-31) pg MCHC 34 (32-36) % Plt Count 222 (150-400) K/uL Neut % (Auto) 75 H (36-66) % Lymph % (Auto) 18 L (24-44) % [place] % (Auto) 6 (2-6) % Eos % (Auto) 1 L (2-4) % Baso % (Auto) 0 (0-1) % Med Orders - Current: Current Medications Acetaminophen (Tylenol Bulk Bottle) 0 mg PO Q4H PRN PRN Reason: Pain Last Admin: 07/24/19 19:22 Dose: 1 bottle Benzocaine (Ewsi-O-Jjztqcm 20% [place]) 1 gm TOP Q4H PRN PRN Reason: Other Emollient Ointment (Lansinoh Hpa) 40 gm TOP ASDIRECTED PRN PRN Reason: Other Ephedrine Sulfate (Ephedrine Sulfate) 10 mg IVPUSH ASDIRECTED PRN PRN Reason: Hypotension Fentanyl (Sublimaze) 100 mcg IVPUSH Q1H PRN PRN Reason: Pain Lactated Ringer's (Ringers, Lactated) 1,000 mls @ 999 mls/hr IV ASDIRECTED HUGO Lactated Ringer's (Ringers, Lactated) 1,000 mls @ 150 mls/hr IV ASDIRECTED HUGO Last Admin: 07/24/19 13:20 Dose: 150 mls/hr Methylergonovine Maleate (Methergine) 0.2 mg PO ONETIME PRN PRN Reason: excessive vaginal bleeding Ondansetron HCl (Zofran) 4 mg IVPUSH Q4H PRN PRN Reason: Nausea/Vomiting Last Admin: 07/24/19 15:47 Dose: 4 mg Sodium Chloride (Saline Flush) 10 ml FLUSH ASDIRECTED PRN PRN Reason: Keep Vein Open Tramadol HCl (Ultram) 50 mg PO Q8H PRN PRN Reason: Pain (severe 7-10) Last Admin: 07/25/19 01:16 Dose: 50 mg Witch Rosalinda (Tucks) 1 pad TOP ASDIRECTED PRN PRN Reason: Other Discontinued Medications Benzocaine (Blcm-T-Nzrssbk 20% [place]) 0 gm TOP ONETIME ONE Stop: 07/24/19 17:09 Last Admin: 07/24/19 19:20 Dose: 1 applic Emollient Ointment (Lansinoh Hpa) 1 gm TOP ONETIME ONE Stop: 07/24/19 17:09 Last Admin: 07/24/19 19:20 Dose: 1 applic Lactated Ringer's (Ringers, Lactated) 1,000 mls @ 999 mls/hr IV .BOLUS ONE Stop: 07/24/19 13:10 Last Admin: 07/24/19 12:15 Dose: 999 mls/hr Ropivacaine (Naropin 0.2%) Confirm Administered Dose 100 mls @ as directed .ROUTE .STK-MED ONE Stop: 07/24/19 13:47 Ibuprofen (Motrin Bulk Bottle) 600 mg PO Q6H PRN PRN Reason: Pain Methylergonovine Maleate (Methergine) 0.2 mg IM ONETIME ONE Stop: 07/24/19 14:46 Last Admin: 07/24/19 19:17 Dose: Not Given Misoprostol (Cytotec) 50 mcg VAG ONETIME ONE Stop: 07/24/19 07:07 Last Admin: 07/24/19 07:43 Dose: 50 mcg Witch Rosalinda (Tucks) 1 pad TOP ONETIME ONE Stop: 07/24/19 17:09 Last Admin: 07/24/19 19:21 Dose: 1 pad - Infant Interaction Disposition, : Anchor in Room with Family Infant Interaction: Holding Infant Feeding: Breastfed ; Nursed Well Support Person: - Recovery Exam Fundal Tone: Firm Fundal Level: At Umbilicus Fundal Placement: Midline Lochia Amount: Small Lochia Color: [place]/Red Perineum Description: Intact, Minimal Bruising/Swelling, Edematous, Other (see below) Other Perinuem Description: [place] Episiotomy/Laceration: None Bladder Status: Voiding Urinary Elimination: Voided - Exam General: Alert, Oriented HEENT: Pupils Equal Neck: Supple Lungs: Clear to Auscultation, Normal Respiratory Effort Cardiovascular: Regular Rate, Regular Rhythm GI/Abdominal Exam: Normal Bowel Sounds, Soft, Non-Tender, No Distention, Pelvis Stable Extremities: Normal Inspection, Normal Range of Motion, Non-Tender, No Pedal Edema, Normal Capillary Refill Skin: Warm, Dry, Intact Neurological: No New Focal Deficit Psy/Mental Status: Alert, Normal Affect, Normal Mood - Problem List & Annotations (1) Elective induction of labor planned SNOMED Code(s): 044901280 Code(s): LLA3987 - Status: Acute Current Visit: Yes (2) SNOMED Code(s): 34330646 Code(s): Z34.90 - ENCNTR FOR SUPRVSN OF NORMAL , UNSP, UNSP TRIMESTER Status: Acute Current Visit: Yes Qualifiers: Weeks of gestation: 39 weeks Qualified Code(s): Z3A.39 - 39 weeks gestation of (3) Shoulder dystocia during labor and delivery SNOMED Code(s): 90953893 Code(s): O66.0 - OBSTRUCTED LABOR DUE TO SHOULDER DYSTOCIA Status: Acute Current Visit: Yes (4) Smoker SNOMED Code(s): 82811447 Code(s): F17.200 - NICOTINE DEPENDENCE, UNSPECIFIED, UNCOMPLICATED Status: Acute Current Visit: Yes (5) Vaginal delivery SNOMED Code(s): 947402323 Code(s): O80 - ENCOUNTER FOR FULL-TERM UNCOMPLICATED DELIVERY Status: Acute Current Visit: Yes - Problem List Review Problem List Initiated/Reviewed/Updated: Yes - Assessment Assessment:: 07/24/2019 28 year old with shoulder dystocia smoker 07/25/19 AVSS Hgb 11.3 GBS negative FF with light flow is going well Pain controlled, does have cramping with feeding and some perineal discomfort from swelling - Plan Plan:: 07/24/2019 28 year old 39 2/7 weeks, planned induction for smoking and deployment. CE:1-/-1 reactive NST BPP 10/10 baseline FHT 145, cat one strip Plan Miso 50 mcg this morning reassess at noon monitor for active labor pain medication per patient request. Plan for vaginal delivery 07/24/2019 Routine cares support 24-48 hour stay. CBC in AM 07/25/19 support today Routine pp cares Breast pump rx written Discharge home this afternoon, reviewed all warning s/s 6 week pp check, patient plans on moving so if not here she will follow up elsewhere
[2019-07-26] MEDS: traMADol 50 MG Tab PO PRN (02:52)
[2019-07-26 07:38] VITALS: BP 126/75; PULSE 73
--- NOTE | 2019-07-26 08:14 | PCM.PNPP ---
- General Info Date of Service: 07/26/19 - Review of Systems General: Reports: No Symptoms HEENT: Reports: No Symptoms Pulmonary: Reports: No Symptoms Cardiovascular: Reports: No Symptoms Gastrointestinal: Reports: No Symptoms Genitourinary: Reports: No Symptoms Musculoskeletal: Reports: No Symptoms Skin: Reports: No Symptoms Neurological: Reports: No Symptoms Psychiatric: Reports: No Symptoms - Patient Data Vital Signs - Most Recent: Last Vital Signs Temp 37.2 C 07/26/19 07:38 Pulse 73 07/26/19 07:38 Resp 16 07/26/19 07:38 BP 126/75 07/26/19 07:38 Pulse Ox 98 07/26/19 07:38 Weight - Most Recent: 98.883 kg I&O - Last 24 Hours: Intake & Output 07/25/19 07/26/19 07/26/19 22:59 06:59 14:59 Intake Total 1080 Balance 1080 Med Orders - Current: Current Medications Acetaminophen (Tylenol Bulk Bottle) 0 mg PO Q4H PRN PRN Reason: Pain Last Admin: 07/24/19 19:22 Dose: 1 bottle Benzocaine (Fkml-H-Wbsycps 20% [place]) 1 gm TOP Q4H PRN PRN Reason: Other Emollient Ointment (Lansinoh Hpa) 40 gm TOP ASDIRECTED PRN PRN Reason: Other Ephedrine Sulfate (Ephedrine Sulfate) 10 mg IVPUSH ASDIRECTED PRN PRN Reason: Hypotension Fentanyl (Sublimaze) 100 mcg IVPUSH Q1H PRN PRN Reason: Pain Lactated Ringer's (Ringers, Lactated) 1,000 mls @ 999 mls/hr IV ASDIRECTED HUGO Lactated Ringer's (Ringers, Lactated) 1,000 mls @ 150 mls/hr IV ASDIRECTED HUGO Last Admin: 07/24/19 13:20 Dose: 150 mls/hr Methylergonovine Maleate (Methergine) 0.2 mg PO ONETIME PRN PRN Reason: excessive vaginal bleeding Ondansetron HCl (Zofran) 4 mg IVPUSH Q4H PRN PRN Reason: Nausea/Vomiting Last Admin: 07/24/19 15:47 Dose: 4 mg Sodium Chloride (Saline Flush) 10 ml FLUSH ASDIRECTED PRN PRN Reason: Keep Vein Open Tramadol HCl (Ultram) 50 mg PO Q8H PRN PRN Reason: Pain (severe 7-10) Last Admin: 07/26/19 02:52 Dose: 50 mg Witch Rosalinda (Tucks) 1 pad TOP ASDIRECTED PRN PRN Reason: Other Discontinued Medications Benzocaine (Ekpu-C-Sxgfpbq 20% [place]) 0 gm TOP ONETIME ONE Stop: 07/24/19 17:09 Last Admin: 07/24/19 19:20 Dose: 1 applic Emollient Ointment (Lansinoh Hpa) 1 gm TOP ONETIME ONE Stop: 07/24/19 17:09 Last Admin: 07/24/19 19:20 Dose: 1 applic Lactated Ringer's (Ringers, Lactated) 1,000 mls @ 999 mls/hr IV .BOLUS ONE Stop: 07/24/19 13:10 Last Admin: 07/24/19 12:15 Dose: 999 mls/hr Ropivacaine (Naropin 0.2%) Confirm Administered Dose 100 mls @ as directed .ROUTE .STK-MED ONE Stop: 07/24/19 13:47 Ibuprofen (Motrin Bulk Bottle) 600 mg PO Q6H PRN PRN Reason: Pain Methylergonovine Maleate (Methergine) 0.2 mg IM ONETIME ONE Stop: 07/24/19 14:46 Last Admin: 07/24/19 19:17 Dose: Not Given Misoprostol (Cytotec) 50 mcg VAG ONETIME ONE Stop: 07/24/19 07:07 Last Admin: 07/24/19 07:43 Dose: 50 mcg Witch Rosalinda (Tucks) 1 pad TOP ONETIME ONE Stop: 07/24/19 17:09 Last Admin: 07/24/19 19:21 Dose: 1 pad - Interaction Disposition, : in Room with Family Infant Interaction: Holding Infant Infant Feeding: Breastfed Infant; Nursed Well Support Person: - Recovery Exam Fundal Tone: Firm Fundal Level: At Umbilicus Fundal Placement: Midline Lochia Amount: Small Lochia Color: [place] Perineum Description: Intact, Minimal Bruising/Swelling, Edematous, Other (see below) Other Perinuem Description: [place] Episiotomy/Laceration: None Bladder Status: Voiding Urinary Elimination: Voided - Problem List & Annotations (1) Shoulder dystocia during labor and delivery SNOMED Code(s): 82613287 Code(s): O66.0 - OBSTRUCTED LABOR DUE TO SHOULDER DYSTOCIA Status: Acute Current Visit: Yes (2) Smoker SNOMED Code(s): 68922165 Code(s): F17.200 - NICOTINE DEPENDENCE, UNSPECIFIED, UNCOMPLICATED Status: Acute Current Visit: Yes (3) Vaginal delivery SNOMED Code(s): 889883729 Code(s): O80 - ENCOUNTER FOR FULL-TERM UNCOMPLICATED DELIVERY Status: Acute Current Visit: Yes - Problem List Review Problem List Initiated/Reviewed/Updated: Yes - Assessment Assessment:: 07/24/2019 28 year old with shoulder dystocia smoker 07/25/19 AVSS Hgb 11.3 GBS negative FF with light flow is going well Pain controlled, does have cramping with feeding and some perineal discomfort from swelling 07/26/2019 day two Doing well Fundus firma nd bleeding decreasing well - Plan Plan:: 07/24/2019 28 year old 39 2/7 weeks, planned induction for smoking and deployment. CE:1-/-1 reactive NST BPP 10/10 baseline FHT 145, cat one strip Plan Miso 50 mcg this morning reassess at noon monitor for active labor pain medication per patient request. Plan for vaginal delivery 07/24/2019 Routine cares support 24-48 hour stay. CBC in AM 07/25/19 support today Routine pp cares Breast pump rx written Discharge home this afternoon, reviewed all warning s/s 6 week pp check, patient plans on moving so if not here she will follow up elsewhere 07/26/2019 Continue routine cares Continue support Discharge home today
== END 2019-07-26 10:00 | disposition home or self-care (01) | DRG 807 ==
LOC: JP.ICU 06:04 → JP.OB 06:16 → OBSVTOIN 17:00 → JP.ICU 17:00 → JP.MS 07-25 18:52
PROVIDERS: ADMIT Nurse Practitioner Family; ATTEND Nurse Practitioner Family
PROC: 10E0XZZ Delivery of Products of Conception, External Approach (ICD-10-PCS; principal; 2019-07-24)
PROC: 10907ZC Drainage of Amniotic Fluid, Therapeutic from Products of Conception, Via Natural or Artificial Opening (ICD-10-PCS; 2019-07-24)
PROC: 3E0P7VZ Introduction of Hormone into Female Reproductive, Via Natural or Artificial Opening (ICD-10-PCS; 2019-07-24)
PROC: 4A1HXCZ Monitoring of Products of Conception, Cardiac Rate, External Approach (ICD-10-PCS; 2019-07-24)
PROC: 3E0R3BZ Introduction of Anesthetic Agent into Spinal Canal, Percutaneous Approach (ICD-10-PCS; 2019-07-24)
PROC: 00HU33Z Insertion of Infusion Device into Spinal Canal, Percutaneous Approach (ICD-10-PCS; 2019-07-24)
DX: O99.334 Smoking (tobacco) complicating childbirth (principal); O69.1XX0 Labor and delivery complicated by cord around neck, with compression, not applicable or unspecified; F17.210 Nicotine dependence, cigarettes, uncomplicated; O66.0 Obstructed labor due to shoulder dystocia; Z3A.39 39 weeks gestation of pregnancy; Z88.8 Allergy status to other drugs, medicaments and biological substances; Z37.0 Single live birth; Z79.899 Other long term (current) drug therapy
CPT/HCPCS: 36415; 51702; 59409; 76819; 80305-QW; 81003; 85025; A9270-GY; J2405; J2795; J7120